=== PATIENT | female | born 1945 | race Caucasian/White ===

== ENCOUNTER 2016-07-21 19:21 | Inpatient (IN) | payer OTHER ==
[~2016-07-21] VITALS: Ht 142.2 cm; Wt 58.3 kg
[~2016-07-21 19:21] MED LIST: ASPI81TA21 PO; BUME1TAB PO; CRS10 PO; FOSI40TA2 PO; ISOS-11 PO; METO-596 PO; MIRT15TA3 PO; NRN/300 PO; POTA-331 PO; SODIUM CHLORIDE 0.9% 1000ML 1,000 ML IV STA
--- NOTE | 2016-07-21 19:38 | DIAGNOSTIC IMAGING REPORT ---
HEAD CT NONCONTRAST CT DOSE: 537.48 mGy.cm HISTORY: EVALUATE ALTERED MENTAL STATUS/WEAKNESS TECHNIQUE: Multiaxial CT images of the head were performed without the use of intravenous contrast. Automated exposure control was utilized for this study. Comparison: None. Findings: The paranasal sinuses and mastoid air cells are clear. The calvarium and skull base are intact. There is no mass, hematoma, midline shift, or acute infarct. White matter hypodensity is nonspecific but suggestive of microvascular ischemic change. The ventricles and sulci demonstrate mild age-related involutional changes. Questionable increased density within the proximal left MCA. Impression: No definite acute infarct identified at this time. Questionable increased density of the proximal left MCA. Please correlate clinically for a left MCA territory infarct. MRI may also help for further evaluation.. Atrophy and microvascular ischemic changes. Electronically signed by: Juan Castro M.D. 07/21/2016 7:36 PM Dictated Date/Time: 07/21/2016 7:29 PM
[2016-07-21] MEDS ORDERED: CLOP1TAB15 PO (19:48)
[2016-07-21] MEDS ORDERED: COEN100C15 PO (19:48)
[2016-07-21] MEDS ORDERED: SERT50TA PO (19:48)
[2016-07-21] MEDS ORDERED: B-COCAP28 PO (19:48)
[2016-07-21] MEDS ORDERED: CHOL1000 PO (19:48)
[2016-07-21] MEDS ORDERED: ATOR-24 PO (19:48)
[2016-07-21] MEDS ORDERED: CINA0.42 PO (19:48)
[2016-07-21] MEDS ORDERED: CYAN100020 PO (19:48)
[2016-07-21] MEDS ORDERED: VITA1TAB4 PO (19:48)
[2016-07-21] MEDS ORDERED: METO5TAB3 PO (19:48)
[2016-07-21] MEDS ORDERED: WARF2TAB8 PO (19:48)
[2016-07-21] MEDS ORDERED: POTTAB2 PO (19:48)
[2016-07-21] MEDS ORDERED: NRN100 PO (19:48)
[2016-07-21] MEDS ORDERED: PANT40TA PO (19:48)
[2016-07-21] MEDS ORDERED: ALL100 PO (19:48)
[2016-07-21] MEDS ORDERED: PRAM0.256 PO (19:48)
[2016-07-21] MEDS ORDERED: LNX125 PO ×2 (19:48→19:52)
[2016-07-21 19:51] LABS: BASO % 0.4 %; BASO ABS # 0.05 K/uL (0-0.2); COMPLETE YES; EOS % 1.9 %; HEMATOCRIT 39.6 % (37-47); IG% 0.3 %; LYMPH % 12.1 %; LYMPH ABS # 1.35 K/uL (1.2-3.4); MEAN CELL VOLUME 108.5 fL (80-100); MEAN CORPUSCULAR HEMOGLOBIN 35.3 pg (25-34); MEAN CORPUSCULAR HGB CONC 32.6 g/dl (32-36); MEAN PLATELET VOLUME 10.2 fL (7.4-10.4); MONO % 4.8 %; NEUT % 80.5 %; PLATELET COUNT 284 K/uL (130-400); RED BLOOD COUNT 3.65 M/uL (4.2-5.4); WHITE BLOOD COUNT 11.16 K/uL (4.8-10.8)
[2016-07-21] MEDS ORDERED: LOPE-5 PO (19:53)
[2016-07-21] MEDS ORDERED: ACET-1256 PO (19:54)
[2016-07-21 20:01] LABS: INR 1.4 (0.9-1.1); PARTIAL THROMBOPLASTIN RATIO 1.1; PROTHROMBIN TIME (PATIENT) 15.2 SECONDS (9.0-12.0)
--- NOTE | 2016-07-21 20:09 | DIAGNOSTIC IMAGING REPORT ---
CHEST ONE VIEW PORTABLE HISTORY: EVALUATE ALTERED MENTAL STATUS/WEAKNESS COMPARISON: None. FINDINGS: The patient is slightly rotated. The heart remains enlarged. No pneumothorax. Perihilar hazy opacities and interstitial thickening. This favors mild congestive change. There may be trace bilateral pleural effusions. There is an age-indeterminate displaced left humeral neck fracture. IMPRESSION: Cardiomegaly with mild congestive change and possibly trace bilateral pleural effusions. Age-indeterminate displaced left humeral neck fracture. Electronically signed by: Juan Castro M.D. 07/21/2016 8:07 PM Dictated Date/Time: 07/21/2016 8:05 PM
[2016-07-21 20:18] LABS: BUN/CREATININE RATIO 3.9 (10-20); CALCIUM 8.7 mg/dl (8.5-10.1); CKMB/CK RATIO 4.6 (0-3.0); CREATININE 2.3 mg/dl (0.60-1.20); MAGNESIUM 1.7 mg/dl (1.8-2.4); POTASSIUM 3.8 mmol/L (3.5-5.1); THYROID STIMULATING HORMONE 2.01 uIu/ml (0.300-4.500)
[2016-07-21] MEDS ORDERED: METOPROLOL TARTRATE 1 MG/ML VIAL IV STA (20:30)
[2016-07-21] MEDS ORDERED: HEPARIN 25000 UNIT/500 ML D5W ONE (20:42)
[2016-07-21] MEDS ORDERED: WARFARIN SOD 4 MG TAB PO ONE (21:35)
[2016-07-21] MEDS ORDERED: PHARMACIST DISCHARGE MED REC CONSULT PRN (21:45)
--- NOTE | 2016-07-21 21:56 | EMERGENCY ROOM VISIT NOTE ---
History Report prepared by Modesta: Brad Lawson Under the Supervision of: Dr. Medardo Jimenez D.O. First contact with patient: 18:53 Chief Complaint: STROKE SYMPTOMS Stated Complaint: STROKE ALERT History of Present Illness The patient is a 70 year old female with a history of atrial fibrillation who presents to the Emergency Room with complaints of persistent expressive aphasia beginning an hour and a half prior to arrival. As per daughter, the patient had finished eating and laid down around 1800, and then the patient began speaking but was not making sense. She notes her daughter tried squeezing her hands but she was limp. The daughter states the patient was able to smile and squeeze her hands following the episode, but the speech was not back to normal. She notes the patient is on Coumadin and has had atrial fibrillation for a couple of months. The daughter states the patient receives dialysis three times a week, and the patient had dialysis today. She notes the patient appeared more lethargic than usual following her dialysis today. The daughter states the patient has been tested for mini strokes in the past at [place], but they did not find anything. She notes the patient has a compression fracture in her back and had her port taken out 4-5 months ago. The daughter denies the patient having surgery in the past three months or recent GI bleeds. She denies the patient experiencing recent trauma except three months ago, the patient rolled out of bed and broke her left arm. The daughter denies the patient having liver problems. It is noted the patient's INR is 1.4. The patient's history is limited secondary to aphasia. 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 Review of Systems The HPI and ROS are limited secondary to expressive aphasia. Past Medical & Surgical Medical Problems: (1) Atrial fibrillation (2) Atrial fibrillation with RVR (3) CHF (congestive heart failure) (4) Depression Family History Patient reports no known family medical history. Social History Smoking Status: Never Smoker Marital Status: Housing Status: lives with family Current/Historical Medications Scheduled Acetaminophen (Tylenol), 1,000 MG PO DIRECTED Allopurinol (Allopurinol), 100 MG PO BID Atorvastatin (Lipitor), 40 MG PO QPM B-Complex W/ C & Folic Acid (Triphrocaps), 1 CAP PO Q2D Cholecalciferol (Vitamin D3), 1,000 MG PO DAILY Cinacalcet (Sensipar), 30 MG PO Q2D Clopidogrel (Plavix), 75 MG PO QAM Coenzyme Q10 (Ubidecarenone) (Co Q10), 100 MG PO BID Cyanocobalamin (Vitamin B12), 1,000 MCG PO DAILY Digoxin (Digoxin), 0.125 MG PO DIRECTED Digoxin (Digoxin), 0.125 MG PO WK Gabapentin (Gabapentin), 100 MG PO BID Loperamide Hcl (Imodium A-D), 2 TAB PO DIRECTED Metoclopramide HCl (Metoclopramide HCl), 5 MG PO QID Pantoprazole (Protonix), 40 MG PO QAM Pot Phosphate Monobasic W/ Sod (Phospha 250 Neutral), 1 TAB PO BID Pramipexole Dihydrochloride (Pramipexole Dihydrochlori), 0.25 MG PO QPM Sertraline (Zoloft), 50 MG PO QPM Vitamin E (Vitamin E), 400 MG PO DAILY Warfarin Sod (Jantoven), 2 MG PO QPM Allergies Coded Allergies: Erythromycin (Verified Adverse Reaction, Severe, VOMITING, 07/21/16) Acetaminophen (Verified Adverse Reaction, Unknown, VOMITING, 07/21/16) Propoxyphene (Verified Adverse Reaction, Unknown, VOMITING, 07/21/16) Physical Exam Vital Signs Date Time Temp Pulse Resp B/P Pulse Ox O2 Delivery O2 Flow Rate FiO2 07/21/16 21:11 99 100 07/21/16 20:58 133/69 07/21/16 20:51 116 22 99 07/21/16 20:50 132/88 07/21/16 20:49 116 126/76 07/21/16 20:30 126/76 07/21/16 20:21 125 21 100 07/21/16 19:51 124 22 100 07/21/16 19:42 Room Air 07/21/16 19:32 126 07/21/16 19:28 135/79 07/21/16 19:28 36.6 128 22 135/79 100 Room Air Physical Exam VITAL SIGNS: were reviewed as above. GENERAL:Non-toxic in appearance. SKIN: Warm dry and pink. HEAD: Normocephalic and atraumatic. OROPHARYNX: Is clear and moist NECK: Supple without lymphadenopathy or meningismus. LUNGS: clear. HEART: Regular rate and rhythm. ABDOMEN: Soft and nontender. EXTREMITIES: Mild left arm and left leg weakness compared to the right, although the assessment was somewhat challenged due to to previous left shoulder fracture. Warm and well perfused. NEUROLOGICALLY: Awake alert and oriented. Mild right sided facial droop. There is no pronator drift. Mild right sided facial droop. Expressive aphasia when attempting to speak but speech is garbled or with inappropriate words. Vision is grossly normal. MUSCULOSKELETAL: Good muscle tone. No evidence of trauma. Medical Decision & Procedures ER Provider Diagnostic Interpretation: X ray results and stated below per my interpretation and radiologist interpretation. Other radiology results and stated below per my review and radiologist interpretation: CHEST ONE VIEW PORTABLE HISTORY: EVALUATE ALTERED MENTAL STATUS/WEAKNESS COMPARISON: None. FINDINGS: The patient is slightly rotated. The heart remains enlarged. No pneumothorax. Perihilar hazy opacities and interstitial thickening. This favors mild congestive change. There may be trace bilateral pleural effusions. There is an age-indeterminate displaced left humeral neck fracture. IMPRESSION: Cardiomegaly with mild congestive change and possibly trace bilateral pleural effusions. Age-indeterminate displaced left humeral neck fracture. Electronically signed by: Juan Castro M.D. 07/21/2016 8:07 PM Dictated Date/Time: 07/21/2016 8:[address] CT DOSE: 537.48 mGy.cm HISTORY: EVALUATE ALTERED MENTAL STATUS/WEAKNESS TECHNIQUE: Multiaxial CT images of the head were performed without the use of intravenous contrast. Automated exposure control was utilized for this study. Comparison: None. Findings: The paranasal sinuses and mastoid air cells are clear. The calvarium and skull base are intact. There is no mass, hematoma, midline shift, or acute infarct. White matter hypodensity is nonspecific but suggestive of microvascular ischemic change. The ventricles and sulci demonstrate mild age-related involutional changes. Questionable increased density within the proximal left MCA. Impression: No definite acute infarct identified at this time. Questionable increased density of the proximal left MCA. Please correlate clinically for a left MCA territory infarct. MRI may also help for further evaluation.. Atrophy and microvascular ischemic changes. Electronically signed by: Juan Castro M.D. 07/21/2016 7:36 PM Dictated Date/Time: 07/21/2016 7:29 PM Laboratory Results 07/21/16 19:38 Red Blood Count 3.65, Mean Corpuscular Volume 108.5, Mean Corpuscular Hemoglobin 35.3, Mean Corpuscular Hemoglobin Concent 32.6, Mean Platelet Volume 10.2, Neutrophils (%) (Auto) 80.5, Lymphocytes (%) (Auto) 12.1, Monocytes (%) ( Auto) 4.8, Eosinophils (%) (Auto) 1.9, Basophils (%) (Auto) 0.4, Neutrophils # ( Auto) 8.98, Lymphocytes # (Auto) 1.35, Monocytes # (Auto) 0.54, Eosinophils # ( Auto) 0.21, Basophils # (Auto) 0.05 07/21/16 19:38 Test 07/21/16 19:30 07/21/16 19:36 07/21/16 19:38 07/21/16 20:38 Bedside Glucose 153 mg/dl (70-90) Bedside Prothrombin Time INR 1.4 (0.9-1.1) White Blood Count 11.16 K/uL (4.8-10.8) Red Blood Count 3.65 M/uL (4.2-5.4) Hemoglobin 12.9 g/dL (12.0-16.0) Hematocrit 39.6 % (37-47) Mean Corpuscular Volume 108.5 fL (80-100) Mean Corpuscular Hemoglobin 35.3 pg (25-34) Mean Corpuscular Hemoglobin Concent 32.6 g/dl (32-36) Platelet Count 284 K/uL (130-400) Mean Platelet Volume 10.2 fL (7.4-10.4) Neutrophils (%) (Auto) 80.5 % Lymphocytes (%) (Auto) 12.1 % Monocytes (%) (Auto) 4.8 % Eosinophils (%) (Auto) 1.9 % Basophils (%) (Auto) 0.4 % Neutrophils # (Auto) 8.98 K/uL (1.4-6.5) Lymphocytes # (Auto) 1.35 K/uL (1.2-3.4) Monocytes # (Auto) 0.54 K/uL (0.11-0.59) Eosinophils # (Auto) 0.21 K/uL (0-0.5) Basophils # (Auto) 0.05 K/uL (0-0.2) RDW Standard Deviation 66.8 fL (36.4-46.3) RDW Coefficient of Variation 16.7 % (11.5-14.5) Immature Granulocyte % (Auto) 0.3 % Immature Granulocyte # (Auto) 0.03 K/uL (0.00-0.02) Prothrombin Time 15.2 SECONDS (9.0-12.0) Prothromb Time International Ratio 1.4 (0.9-1.1) Activated Partial Thromboplast Time 28.8 SECONDS (21.0-31.0) Partial Thromboplastin Ratio 1.1 Anion Gap 12.0 mmol/L (3-11) Est Creatinine Clear Calc Drug Dose 18.0 ml/min Estimated GFR () 24.0 Estimated GFR (Non- 20.7 BUN/Creatinine Ratio 3.9 (10-20) Calcium Level 8.7 mg/dl (8.5-10.1) Magnesium Level 1.7 mg/dl (1.8-2.4) Total Bilirubin 0.7 mg/dl (0.2-1) Direct Bilirubin 0.2 mg/dl (0-0.2) Aspartate Amino Transf (AST/SGOT) 24 U/L (15-37) Alanine Aminotransferase (ALT/SGPT) 13 U/L (12-78) Alkaline Phosphatase 160 U/L (45-117) Total Creatine Kinase 35 U/L (26-192) Creatine Kinase MB 1.6 ng/ml (0.5-3.6) Creatine Kinase MB Ratio 4.6 (0-3.0) Troponin I 0.034 ng/ml (0-0.045) Total Protein 7.3 gm/dl (6.4-8.2) Albumin 2.8 gm/dl (3.4-5.0) Lipase 141 U/L (73-393) Thyroid Stimulating Hormone (TSH) 2.010 uIu/ml (0.300-4.500) Laboratory results as stated above per my review. Medications Administered Medications (Trade) Dose Ordered Sig/Liliane Route Start Time Stop Time Status Last Admin Dose Admin Sodium Chloride (Nss 1000ml) 1,000 ml @ 100 mls/hr Q10H STAT IV 07/21/16 19:01 07/22/16 05:00 07/21/16 19:01 100 MLS/HR Metoprolol Tartrate (Lopressor Iv) 5 mg NOW STAT IV 07/21/16 20:30 07/21/16 20:32 DC 07/21/16 20:49 5 MG Heparin Sodium/ Dextrose (Heparin 25,000 Unit/500ml D5W) 25,000 unit STK-MED ONCE .ROUTE 07/21/16 20:42 07/21/16 20:43 DC 07/21/16 21:02 25,000 UNIT ECG Indication: other (expressive aphasia) Rate (beats per minute): 129 Rhythm: atrial fibrillation Findings: no ectopy, other (no acute injury) ED Course 1900: Ordered Sodium Chloride 1,000 ml @ 100 mls/hr IV. 1931: Previous medical records were reviewed. The patient was evaluated in room B1. A complete history and physical examination was performed. 1951: I spoke to Dr. Chris, [facility] about the patient's case, and he will evaluate the patient via the TeleStroke. 2029: Ordered Heparin Sodium/Dextrose 1 ea N/A, Lopressor Iv 5 mg IV. 2034: Heparin Sodium/Dextrose 1 ea N/A. 2050: I spoke to Dr. Guardado [facility] (Hospitalist) about the patient's case, and he will follow the patient for further evaluation. Medical Decision Differential includes acute coronary syndrome, myocardial infarction, CVA, TIA, anemia, infection, pneumonia, UTI, pyelonephritis, poor nutrition, dehydration, electrolyte disturbance,hypoglycemia. This is a 70-year-old female who presents to the ED with a chief complaint of strokelike symptoms. The patient's main symptoms are expressive aphasia. Symptoms started around 6 PM tonight. The patient was brought in as a stroke alert. Her exam reveals some expressive aphasia. She is evaluated by [facility]. The patient and family wanted conservative measures. She did not have any clear focal deficits in her extremity exam. CBC was unremarkable. Creatinine is 2.3. Patient is dialysis dependent renal failure. She had dialysis earlier today. Glucose is 265. Magnesium was 1.7. CAT scan did not show any acute process. The patient is on Coumadin for A. fib diagnosed a few months ago. INR today is 1.4. The patient was given IV heparin. Her initial EKG showed A. fib at a rate of about 130. She was given IV Lopressor for this. She'll be seen by the hospitalist for further inpatient care. Consults Time Called: 1939 Consulting Physician: [facility] Returned Call: 1951 I spoke to [facility] about the patient's case, and he will evaluate the patient via the TeleStroke. Additional Consults: Time Called: 2038 Consulted Physician: LYUDMILA Peck (Hospitalist) Returned Call: 2050 Additional Comments: I spoke to LYUDMILA Peck (Hospitalist) about the patient's case, and he will follow the patient for further evaluation. Impression Primary Impression: CVA (cerebral vascular accident) Additional Impression: Expressive aphasia Critical Care I have personally spent 30 minutes of critical care time in the direct management of this patient. This includes bedside care, interpretation of diagnostic studies, and testing, discussion with consultants, patient, and family members, and other required patient management activities. This 30 minutes is in excess of all separately billable procedures. Scribe Attestation The scribe's documentation has been prepared under my direction and personally reviewed by me in its entirety. I confirm that the note above accurately reflects all work, treatment, procedures, and medical decision making performed by me. Departure Information Dispostion Being Evaluated By Hospitalist (LYUDMILA Peck (Hospitalist)) Referrals Medardo Trotter M.D. (PCP) Stroke History Time Last Known Well 1800 07/21/2016 Stroke t-PA Criteria Reviewed Reason t-PA Not Given Refusal of tx by patient (Family wanted conservative measures. Symptoms were stuttering.)
[2016-07-21 23:36] VITALS: BP 107/65; PULSE 91; TEMP 36.4; O2SAT 93; Ht 142.2 cm; Wt 58.3 kg
[2016-07-22] VITALS (7 sets, daily range): BP systolic 108–136; BP diastolic 65–81; PULSE 80–126; TEMP 36.7–36.9; O2SAT 94–97
[2016-07-22] MEDS ORDERED: ENOXAPARIN 1 MG/KG SQ SCH
[2016-07-22] MEDS ORDERED: ENOXAPARIN 60 MG/0.6 ML SYR SQ SCH
[2016-07-22] MEDS ORDERED: MAGNESIUM SULFATE 1GM / D5W 1 GM in PREMIXED IN D5W 100 ML IV STA (00:06)
[2016-07-22] MEDS ORDERED: METOPROLOL TARTRATE 1 MG/ML VIAL IV PRN ×2 (00:15→15:00)
[2016-07-22 03:32] LABS: BASO % 0.7 %; BASO ABS # 0.05 K/uL (0-0.2); COMPLETE YES; EOS % 3.4 %; HEMATOCRIT 34.4 % (37-47); IG% 0.4 %; LYMPH % 22.5 %; LYMPH ABS # 1.59 K/uL (1.2-3.4); MEAN CELL VOLUME 108.2 fL (80-100); MEAN CORPUSCULAR HEMOGLOBIN 34.6 pg (25-34); MEAN PLATELET VOLUME 10.4 fL (7.4-10.4); MONO % 6.8 %; NEUT % 66.2 %; PLATELET COUNT 248 K/uL (130-400); RED BLOOD COUNT 3.18 M/uL (4.2-5.4); WHITE BLOOD COUNT 7.06 K/uL (4.8-10.8)
[2016-07-22 03:43] LABS: PARTIAL THROMBOPLASTIN RATIO 1.4
[2016-07-22 03:52] LABS: BUN/CREATININE RATIO 5.1 (10-20); CALCIUM 7.9 mg/dl (8.5-10.1); CREATININE 2.5 mg/dl (0.60-1.20); POTASSIUM 3.9 mmol/L (3.5-5.1)
[2016-07-22 03:57] LABS: CHOLESTEROL/HDL RATIO 2.1; CKMB/CK RATIO 7.1 (0-3.0)
--- NOTE | 2016-07-22 04:09 | History and Physical ---
History & Physical Date & Time of Service: Jul 22, 2016 at 03:45 Chief Complaint: Atrial Fibrillation With Rvr, Expressive Aphasia Primary Care Physician: Medardo Trotter M.D. History of Present Illness Source: patient, family The patient is a 70-year-old female with end-stage renal disease, who undergoes dialysis on Thursday, Thursday and Thursday, who after dialysis today developed difficulty with talking with family, which is unusual for her. She is brought to the emergency department for assessment of stroke alert, and it was determined that she was not a TPA candidate per stroke neurology. She was then referred for evaluation for admission. She has chronic left arm weakness secondary to a left humerus fracture since April, and has a left arm fistula placed its been used for dialysis since April. She also has chronic left leg weakness which is thought due to lumbar degenerative disc disease. She was diagnosed with H a fibrillation in April of this year at [facility], and was started on Coumadin at that time. She did present in atrial fibrillation with RVR to the emergency department, with a rate of 130 bpm. In addition to warfarin, she takes digoxin on Thursday, Thursday and Thursday. Past Medical/Surgical History Medical Problems: (1) Atrial fibrillation Status: Chronic (2) CHF (congestive heart failure) Status: Chronic (3) Depression Status: Chronic Family History Patient reports no known family medical history. Social History Smoking Status: Never Smoker Smokeless Tobacco Use: No Alcohol Use: none Drug Use: none Marital Status: Housing status: lives with family Occupational Status: disabled Multi-Drug Resistant Organisms History of MDRO: No Allergies Coded Allergies: Erythromycin (Verified Adverse Reaction, Severe, VOMITING, 07/21/16) Acetaminophen (Verified Adverse Reaction, Unknown, VOMITING, 07/21/16) Propoxyphene (Verified Adverse Reaction, Unknown, VOMITING, 07/21/16) Home Medications Scheduled Acetaminophen (Tylenol), 1,000 MG PO DIRECTED Allopurinol (Allopurinol), 100 MG PO BID Atorvastatin (Lipitor), 40 MG PO QPM B-Complex W/ C & Folic Acid (Triphrocaps), 1 CAP PO Q2D Cholecalciferol (Vitamin D3), 1,000 MG PO DAILY Cinacalcet (Sensipar), 30 MG PO Q2D Clopidogrel (Plavix), 75 MG PO QAM Coenzyme Q10 (Ubidecarenone) (Co Q10), 100 MG PO BID Cyanocobalamin (Vitamin B12), 1,000 MCG PO DAILY Digoxin (Digoxin), 0.125 MG PO DIRECTED Digoxin (Digoxin), 0.125 MG PO WK Gabapentin (Gabapentin), 100 MG PO BID Loperamide Hcl (Imodium A-D), 2 TAB PO DIRECTED Metoclopramide HCl (Metoclopramide HCl), 5 MG PO QID Pantoprazole (Protonix), 40 MG PO QAM Pot Phosphate Monobasic W/ Sod (Phospha 250 Neutral), 1 TAB PO BID Pramipexole Dihydrochloride (Pramipexole Dihydrochlori), 0.25 MG PO QPM Sertraline (Zoloft), 50 MG PO QPM Vitamin E (Vitamin E), 400 MG PO DAILY Warfarin Sod (Jantoven), 2 MG PO QPM Review of Systems The patient denies chest pain, palpitations, shortness of breath, cough, vision change, hearing change, sore throat, fevers, chills, sweats, weight change, vomiting, abdominal pain, pelvic pain, blood in urine or stool, dysuria, urinary frequency or urgency, rash, abnormal bruising or bleeding, arthralgias or myalgias, back or neck pain, night sweats, or allergy symptoms. The review of systems is otherwise negative other than for that already noted above, and at least 10 systems have been reviewed. Physical Exam Vital Signs Date Time Temp Pulse Resp B/P Pulse Ox O2 Delivery O2 Flow Rate FiO2 07/21/16 23:36 36.4 91 16 107/65 93 Room Air 07/21/16 22:30 110 25 100 07/21/16 22:00 101 23 100 07/21/16 21:30 98 18 100 07/21/16 21:11 99 100 07/21/16 20:58 133/69 07/21/16 20:51 116 22 99 07/21/16 20:50 132/88 07/21/16 20:49 116 126/76 07/21/16 20:30 126/76 07/21/16 20:21 125 21 100 07/21/16 19:51 124 22 100 07/21/16 19:42 Room Air 07/21/16 19:32 126 07/21/16 19:28 135/79 1/9/17 19:28 36.6 128 22 135/79 100 Room Air The patient is awake, alert and oriented 3, normocephalic and atraumatic, is slow to respond to questions, lying in bed and in no acute distress. HEENT--PERRL, mucous membranes moist, and oropharynx normal. Neck--supple, no JVD or bruits, thyroid normal, trachea midline, no adenopathy. Heart--normal S1 and S2, no extra beats, no murmurs, rubs or gallops. Lungs--clear bilaterally, no respiratory distress, no accessory muscle use. Abdomen--normal bowel sounds and soft, nontender and nondistended, no hernias or masses, no organomegaly. Extremities--no cyanosis, clubbing or edema. There are good distal pulses b/l. Dermatologic--normal skin turgor, normal color, warm and dry, no abnormal lymph nodes, no rash. Neurologic--cranial nerves II through XII grossly intact. Psychiatric--normal affect. Diagnostics Laboratory Results Results Past 24 Hours Test 07/21/16 19:30 07/21/16 19:36 07/21/16 19:38 07/21/16 20:38 Range/Units Bedside Glucose 153 70-90 mg/dl Bedside Prothrombin Time INR 1.4 0.9-1.1 White Blood Count 11.16 4.8-10.8 K/uL Red Blood Count 3.65 4.2-5.4 M/uL Hemoglobin 12.9 12.0-16.0 g/dL Hematocrit 39.6 37-47 % Mean Corpuscular Volume 108.5 80-100 fL Mean Corpuscular Hemoglobin 35.3 25-34 pg Mean Corpuscular Hemoglobin Concent 32.6 32-36 g/dl Platelet Count 284 130-400 K/uL Mean Platelet Volume 10.2 7.4-10.4 fL Neutrophils (%) (Auto) 80.5 % Lymphocytes (%) (Auto) 12.1 % Monocytes (%) (Auto) 4.8 % Eosinophils (%) (Auto) 1.9 % Basophils (%) (Auto) 0.4 % Neutrophils # (Auto) 8.98 1.4-6.5 K/uL Lymphocytes # (Auto) 1.35 1.2-3.4 K/uL Monocytes # (Auto) 0.54 0.11-0.59 K/uL Eosinophils # (Auto) 0.21 0-0.5 K/uL Basophils # (Auto) 0.05 0-0.2 K/uL RDW Standard Deviation 66.8 36.4-46.3 fL RDW Coefficient of Variation 16.7 11.5-14.5 % Immature Granulocyte % (Auto) 0.3 % Immature Granulocyte # (Auto) 0.03 0.00-0.02 K/uL Prothrombin Time 15.2 9.0-12.0 SECONDS Prothromb Time International Ratio 1.4 0.9-1.1 Activated Partial Thromboplast Time 28.8 21.0-31.0 SECONDS Partial Thromboplastin Ratio 1.1 Sodium Level 138 136-145 mmol/L Potassium Level 3.8 3.5-5.1 mmol/L Chloride Level 98 98-107 mmol/L Carbon Dioxide Level 28 21-32 mmol/L Anion Gap 12.0 3-11 mmol/L Blood Urea Nitrogen 9 7-18 mg/dl Creatinine 2.30 0.60-1.20 mg/dl Est Creatinine Clear Calc Drug Dose 18.0 ml/min Estimated GFR () 24.0 Estimated GFR (Non- 20.7 BUN/Creatinine Ratio 3.9 10-20 Random Glucose 265 70-99 mg/dl Calcium Level 8.7 8.5-10.1 mg/dl Magnesium Level 1.7 1.8-2.4 mg/dl Total Bilirubin 0.7 0.2-1 mg/dl Direct Bilirubin 0.2 0-0.2 mg/dl Aspartate Amino Transf (AST/SGOT) 24 15-37 U/L Alanine Aminotransferase (ALT/SGPT) 13 12-78 U/L Alkaline Phosphatase 160 45-117 U/L Total Creatine Kinase 35 26-192 U/L Creatine Kinase MB 1.6 0.5-3.6 ng/ml Creatine Kinase MB Ratio 4.6 0-3.0 Troponin I 0.034 0-0.045 ng/ml Total Protein 7.3 6.4-8.2 gm/dl Albumin 2.8 3.4-5.0 gm/dl Lipase 141 73-393 U/L Thyroid Stimulating Hormone (TSH) 2.010 0.300-4.500 uIu/ml Test 07/22/16 02:51 Range/Units White Blood Count 7.06 4.8-10.8 K/uL Red Blood Count 3.18 4.2-5.4 M/uL Hemoglobin 11.0 12.0-16.0 g/dL Hematocrit 34.4 37-47 % Mean Corpuscular Volume 108.2 80-100 fL Mean Corpuscular Hemoglobin 34.6 25-34 pg Mean Corpuscular Hemoglobin Concent 32.0 32-36 g/dl Platelet Count 248 130-400 K/uL Mean Platelet Volume 10.4 7.4-10.4 fL Neutrophils (%) (Auto) 66.2 % Lymphocytes (%) (Auto) 22.5 % Monocytes (%) (Auto) 6.8 % Eosinophils (%) (Auto) 3.4 % Basophils (%) (Auto) 0.7 % Neutrophils # (Auto) 4.67 1.4-6.5 K/uL Lymphocytes # (Auto) 1.59 1.2-3.4 K/uL Monocytes # (Auto) 0.48 0.11-0.59 K/uL Eosinophils # (Auto) 0.24 0-0.5 K/uL Basophils # (Auto) 0.05 0-0.2 K/uL RDW Standard Deviation 67.2 36.4-46.3 fL RDW Coefficient of Variation 16.9 11.5-14.5 % Immature Granulocyte % (Auto) 0.4 % Immature Granulocyte # (Auto) 0.03 0.00-0.02 K/uL Activated Partial Thromboplast Time 37.2 21.0-31.0 SECONDS Partial Thromboplastin Ratio 1.4 Creatine Kinase MB Ratio 0-3.0 Diagnostic Radiology Patient Name: MELBA GARBER Unit Number: [id number] Dictated: 07/21/161928 Transcribed: 07/21/161928 [employer] Printed Date/Time: [~ rep prt dt]/[~ rep prt tm] [~ rep ct labl] - [~ rep ct ivnm] [facility] [place] [place] [address] Dictated: 07/21/161928 Transcribed: 07/21/161928 [employer] Printed Date/Time: [~ rep prt dt]/[~ rep prt tm] [~ rep ct labl] - [~ rep ct ivnm] HEAD CT NONCONTRAST CT DOSE: 537.48 mGy.cm HISTORY: EVALUATE ALTERED MENTAL STATUS/WEAKNESS TECHNIQUE: Multiaxial CT images of the head were performed without the use of intravenous contrast. Automated exposure control was utilized for this study. Comparison: None. Findings: The paranasal sinuses and mastoid air cells are clear. The calvarium and skull base are intact. There is no mass, hematoma, midline shift, or acute infarct. White matter hypodensity is nonspecific but suggestive of microvascular ischemic change. The ventricles and sulci demonstrate mild age-related involutional changes. Questionable increased density within the proximal left MCA. Impression: No definite acute infarct identified at this time. Questionable increased density of the proximal left MCA. Please correlate clinically for a left MCA territory infarct. MRI may also help for further evaluation.. Atrophy and microvascular ischemic changes. Electronically signed by: Juan Castro M.D. 07/21/2016 7:36 PM Dictated Date/Time: 07/21/2016 7:29 PM The status of this report is Signed. Draft = Not yet reviewed or approved by Radiologist. Signed = Reviewed and approved by Radiologist. <AttendingPhy></AttendingPhy> <FamilyPhy>Medardo Trotter M.D.</FamilyPhy> < PrimaryPhy>Medardo Trotter M.D.</PrimaryPhy> <UnitNumber>[id number]</UnitNumber > <VisitNumber>[id number]</VisitNumber> <PatientName>MELBA GARBER</ PatientName> <DateOfBirth>1945</DateOfBirth> <Location>[facility]</Location> < ServiceDate>07/21/16</ServiceDate> <MNE>ESINDI</MNE> <OrderingPhy>Medardo Jimenez D.O.</OrderingPhy> <OrderingPhyMNE>f rep ord dr bhagat</OrderingPhyMNE> < DictatingPhyMNE>f rep dict dr bhagat</DictatingPhyMNE> <CCListMNE>f rep ct mne</ CCListMNE> <AdmittingPhyMNE>f pt admit dr bhagat</AdmittingPhyMNE> <AttendingPhyMNE >f pt attend dr bhagat</AttendingPhyMNE> <ConsultingPhyMNE>f pt consult dr bhagat</ConsultingPhyMNE> <FamilyPhyMNE>f pt fam dr bhagat</FamilyPhyMNE> <OtherPhyMNE>f pt other dr bhagat</OtherPhyMNE> < PrimaryPhyMNE>f pt prim care dr bhagat</PrimaryPhyMNE> <ReferringPhyMNE>f pt referring dr bhagat</ReferringPhyMNE> Patient Name: MELBA GARBER Unit Number: [id number] Dictated: 07/21/162004 Transcribed: 07/21/162004 [employer] Printed Date/Time: [~ rep prt dt]/[~ rep prt tm] [~ rep ct labl] - [~ rep ct ivnm] [facility] [place] [place] [address] Dictated: 07/21/162004 Transcribed: 07/21/162004 [employer] Printed Date/Time: [~ rep prt dt]/[~ rep prt tm] [~ rep ct labl] - [~ rep ct ivnm] CHEST ONE VIEW PORTABLE HISTORY: EVALUATE ALTERED MENTAL STATUS/WEAKNESS COMPARISON: None. FINDINGS: The patient is slightly rotated. The heart remains enlarged. No pneumothorax. Perihilar hazy opacities and interstitial thickening. This favors mild congestive change. There may be trace bilateral pleural effusions. There is an age-indeterminate displaced left humeral neck fracture. IMPRESSION: Cardiomegaly with mild congestive change and possibly trace bilateral pleural effusions. Age-indeterminate displaced left humeral neck fracture. Electronically signed by: Juan Castro M.D. 07/21/2016 8:07 PM Dictated Date/Time: 07/21/2016 8:05 PM The status of this report is Signed. Draft = Not yet reviewed or approved by Radiologist. Signed = Reviewed and approved by Radiologist. <AttendingPhy></AttendingPhy> <FamilyPhy>Medardo Trotter M.D.</FamilyPhy> < PrimaryPhy>Medardo Trotter M.D.</PrimaryPhy> <UnitNumber>[id number]</UnitNumber > <VisitNumber>[id number]</VisitNumber> <PatientName>MELBA GARBER</ PatientName> <DateOfBirth>1945</DateOfBirth> <Location>[facility]</Location> < ServiceDate>07/21/16</ServiceDate> <MNE>ESINDI</MNE> <OrderingPhy>Medardo Jimenez D.O.</OrderingPhy> <OrderingPhyMNE>f rep ord dr bhagat</OrderingPhyMNE> < DictatingPhyMNE>f rep dict dr bhagat</DictatingPhyMNE> <CCListMNE>f rep ct mnkayla</ CCListMNE> <AdmittingPhyMNE>f pt admit dr bhagat</AdmittingPhyMNE> <AttendingPhyMNE >f pt attend dr bhagat</AttendingPhyMNE> <ConsultingPhyMNE>f pt consult dr bhagat</ConsultingPhyMNE> <FamilyPhyMNE>f pt fam dr bhagat</FamilyPhyMNE> <OtherPhyMNE>f pt other dr bhagat</OtherPhyMNE> < PrimaryPhyMNE>f pt prim care dr bhagat</PrimaryPhyMNE> <ReferringPhyMNE>f pt referring dr bhagat</ReferringPhyMNE> EKG EKG shows atrial fibrillation at a rate of 129 BPM, with baseline noise, and no acute ST-T changes. Impression Assessment and Plan Expressive aphasia with new left parietal lobe acute infarct seen on MRI. CT of the head initially was negative for CVA. MRA of the head and neck are still pending at this time. Atrial fibrillation with rapid ventricular response--the patient was given Lopressor 5 mg IV on emergency department. She'll be admitted to the telemetry unit, for serial cardiac enzymes, cardiac rhythm monitoring, and a 2-D echocardiogram with Dopplers. We'll continue digoxin 125 g by mouth on Thursday , Thursday and Thursday, but will check a digoxin level first. Her INR is subtherapeutic at 1.4 and she typically takes warfarin 2 mg daily. For now will increase warfarin to 4 mg by mouth daily, and place patient on Lovenox 1 mg /kg subcutaneous every 12 hours. 2-D echocardiogram will be performed to assess for possible embolic source of stroke. Magnesium level was mildly low at 1.7, and she'll be given magnesium 1 g IV With possible rate control. She' ll also be placed on Lopressor 2.5 mg IV every 4 hours when necessary heart rate greater than 110. Continue clopidogrel 75 mg by mouth every morning. End-stage renal disease on hemodialysis Thursday, Thursday and Thursday / creatinine upon entry labs was 2.30. She was placed on normal saline and given 1 L by the emergency department, and this will be changed to KVO at this time. We'll continue Sensipar 30 mg by mouth every 2 days, vitamin B complex one by mouth every 2 days, but and B12 1000 g by mouth daily, Phospha 250 neutral 1 tablet by mouth twice a day, vitamin D3 1000 mg by mouth daily. Hyperglycemia--entrance laboratories have a blood sugar 265. She is not presently on diabetic medications. We'll check hemoglobin A1c, and place on Accu-Cheks before meals and at bedtime with NovoLog coverage. Left humerus fracture that is nonhealing--continue to be taken when moving patient while in the hospital. Gout--continue allopurinol 100 mg by mouth twice a day. Hypercholesterolemia--continue atorvastatin 40 mg by mouth every afternoon. Restless leg syndrome--continue pramipexole 0.25 mg by mouth every afternoon. GERD--continue pantoprazole 40 mg by mouth every morning. Peripheral neuropathy--continue gabapentin 100 mg by mouth twice a day. GI dysmotility--continue metoclopramide 5 mg by mouth 4 times a day. Depression--continue sertraline 50 mg by mouth every afternoon. Level of Care Telemetry Advanced Directives Existing Advance Directive: No Existing Living Will: No Existing Power of Laboratory Phlebotomist: No Resuscitation Status FULL RESUSCITATION VTE Prophylaxis VTE Risk Assessment Done? Y/N: Yes Risk Level: High Given or contraindicated: Enoxaparin (Lovenox)SQ, Warfarin (Coumadin)
[2016-07-22 06:29] LABS: ESTIMATED AVERAGE GLUCOSE 114 mg/dl; HA1C FLAG Normal (Normal)
--- NOTE | 2016-07-22 07:10 | DIAGNOSTIC IMAGING REPORT ---
MRI OF THE BRAIN WITHOUT IV CONTRAST CLINICAL HISTORY: Expressive aphasia. Stroke like symptoms. COMPARISON STUDY: CT of the brain dated 07/21/2016. TECHNIQUE: MRI of the brain was performed utilizing various T1 and T2-weighted sequences in the axial, sagittal, and coronal planes. IV contrast was not administered for this examination. FINDINGS: Brain parenchyma: There is a small region of restricted diffusion identified in the left parietal lobe consistent with acute to subacute ischemia. No additional foci of restricted diffusion are identified. There is no hemorrhage or mass effect. There are age-related involutional changes noting mild to moderate patchy subcortical and periventricular microangiopathic disease. No extra-axial fluid collection is seen. The cerebellar tonsils are normal in configuration. Ventricles, sulci, and cisterns: Prominent secondary to involutional change. Pituitary and sella: Unremarkable. Intracranial vasculature: Normal flow voids are maintained at the skull base. Orbits: The bony orbits are grossly intact. Orbital contents are normal in appearance. Sinuses and mastoids: Clear. Calvarium: Unremarkable. Cervical cord: Partially visualized cervical spinal cord is normal in morphology and signal intensity. IMPRESSION: 1. There is a small region of acute to subacute ischemia identified in the left parietal lobe. 2. No additional foci of ischemia are identified. There is no hemorrhage or mass effect. Electronically signed by: Orlando Eason M.D. 07/22/2016 7:08 AM Dictated Date/Time: 07/22/2016 7:04 AM
--- NOTE | 2016-07-22 07:11 | DIAGNOSTIC IMAGING REPORT ---
MR ANGIOGRAPHY OF THE [place] NO CONTRAST CLINICAL HISTORY: Acute stroke. Expressive aphasia. Atrial fibrillation. COMPARISON STUDY: MRI the brain performed the same day, head CT dated 07/21/2016 A 3-D [id number] MR angiographic sequence of the [place] was performed. Both the source and projection images were reviewed. There is no evidence of major intracranial branch occlusion. There is no evidence of intracranial stenosis. There are no lesions suspicious for aneurysm. IMPRESSION: Unremarkable MR angiography of the [place]. Electronically signed by: Nick Hilton M.D. 07/22/2016 7:09 AM Dictated Date/Time: 07/22/2016 7:08 AM
--- NOTE | 2016-07-22 08:06 | Clinical Documentation Query ---
ESTUARDO Estrella : CLINICAL DOCUMENTATION QUERY Patient is a 70 year old female admitted for a left parietal lobe infarct in the setting of atrial fibrillation and subtherapeutic INR of 1.4. Patient was evaluated with CT and MRI and is being treated with Lovenox and Plavix, PT, OT, and speech evaluation. In your clinical opinion is this patient being managed for: ( x ) Cerebral infarction (likely/suspected to be) due to thromboembolism in the setting of atrial fibrillation and subtherapeutic INR ( ) Other explanation of clinical findings (Please Explain) ( ) Unable to determine (Please Define) ( ) Need to Discuss ( ) Not Agree The medical record reflects the following clinical findings, treatment, and risk factors. Clinical Indicators: As above Treatment:Patient was evaluated with CT and MRI and is being treated with Lovenox and Plavix, PT,OT, and speech evaluation Risk Factors: Atrial fibrillation, subtherapeutic INR Please clarify and document your clinical opinion in the progress notes and discharge summary. Terms such as "probable", "suspected", "likely", "questionable", "possible", or "still to be ruled out" are acceptable. IF IN AGREEMENT, YOU MUST DOCUMENT ABOVE DIAGNOSTIC STATEMENT IN DAILY PROGRESS NOTES AND DISCHARGE SUMMARY. This document is not part of the patient's record. Thank You, Quentin Quick, ADRIANE [phone]
[2016-07-22] MEDS: CYANOCOBALAMIN 500 MCG TAB (VIT B-12) PO SCH (08:33)
[2016-07-22] MEDS: ASPIRIN 81 MG ECTAB PO SCH (08:33)
[2016-07-22] MEDS: PANTOprazole SOD 40 MG TAB PO SCH (08:33)
[2016-07-22] MEDS: CLOPIDOGREL BISULFATE 75 MG TAB PO SCH (08:33)
[2016-07-22] MEDS: CHOLECALCIFEROL 1000 INTER.UNIT TAB PO SCH (08:33)
[2016-07-22] MEDS: POT PHOSPHATE MONOBASIC W/ SOD TAB PO SCH ×2 (08:33→20:32)
[2016-07-22] MEDS: CINACALCET 30 MG TAB PO SCH (08:33)
[2016-07-22] MEDS: NEPHROCAPS PO SCH (08:33)
[2016-07-22] MEDS: ALLOPURINOL 100 MG TAB PO SCH ×2 (08:33→20:33)
[2016-07-22] MEDS: METOCLOPRAMIDE HCL 5 MG TAB PO SCH ×4 (08:33→20:32)
[2016-07-22] MEDS: GABAPENTIN 100 MG CAP PO SCH ×2 (08:33→20:32)
[2016-07-22] MEDS ORDERED: ATORVASTATIN 20 MG TAB PO SCH (09:00)
--- NOTE | 2016-07-22 10:39 | Neurology Consultation ---
Neurology Consultation Date of Consultation: Jul 22, 2016. Attending Physician: Charly Hunt D.O. Primary Care Physician: Medardo Trotter M.D. Reason for Consultation: Neurology consultation for stroke History of Present Illness Source: patient, hospital records This is a 70-year-old female who presents with acute change in speech. Smile was occurring during dialysis about family reported that this has never happened before. On presentation to the hospital her INR was noted to be subtherapeutic at 1.4. She is on Coumadin for paroxysmal A. fib. History is somewhat limited secondary to patient's mental status and aphasia. Reportedly has chronic left upper extremity pain and weakness as well as some chronic left lower extremity pain believed to be secondary to back problems. History taking and review of systems is difficult and inconsistent due to patient's mental status and aphasia. Patient has difficult time telling me what was wrong. Past Medical/Surgical History Medical Problems: (1) CVA (cerebral vascular accident) Status: Acute A. fib on Coumadin and end-stage chronic renal failure. According to chart may also have congestive heart failure. Family History Not obtainable Social History Not obtainable. No reports of smoking or tobacco abuse. Smokeless Tobacco Use: No Alcohol Use: none Drug Use: none Marital Status: Housing Status: lives with family Occupation Status: disabled Allergies Coded Allergies: Erythromycin (Verified Adverse Reaction, Severe, VOMITING, 07/21/16) Acetaminophen (Verified Adverse Reaction, Unknown, VOMITING, 07/21/16) Propoxyphene (Verified Adverse Reaction, Unknown, VOMITING, 07/21/16) Current Inpatient Medications Current Inpatient Medications Medications (Trade) Dose Ordered Sig/Liliane Route Start Time Stop Time Status Last Admin Dose Admin Aspirin (Ecotrin Tab) 81 mg QAM PO 07/22/16 09:00 08/21/16 08:59 Miscellaneous Information (Pharmacist Discharge Med Rec Consult) 1 ea UD PRN N/A 07/21/16 21:45 08/20/16 21:44 Allopurinol (Zyloprim Tab) 100 mg BID PO 07/22/16 09:00 08/21/16 08:59 Atorvastatin Calcium (Lipitor Tab) 40 mg QPM PO 07/22/16 21:00 08/21/16 20:59 Vitamin B Complex/ Vit C/Folic Acid (Nephrocaps) 1 cap Q2D@0900 PO 07/22/16 09:00 08/21/16 08:59 Cholecalciferol (Vitamin D Tab) 1,000 inter.unit DAILY PO 07/22/16 09:00 08/21/16 08:59 Clopidogrel Bisulfate (plAVix TAB) 75 mg QAM PO 07/22/16 09:00 08/21/16 08:59 Digoxin (Lanoxin Tab) 0.125 mg MoWeFr@1600 PO 07/23/16 16:00 08/22/16 15:59 Gabapentin (Neurontin Cap) 100 mg BID PO 07/22/16 09:00 08/21/16 08:59 Metoclopramide HCl (Reglan Tab) 5 mg QID PO 07/22/16 09:00 08/21/16 08:59 Pantoprazole Sodium (Protonix Tab) 40 mg QAM PO 07/22/16 09:00 08/21/16 08:59 Potassium/ Phosphorus/Sodium (Phospha 250 Neutral 155-852-130 Mg) 1 tab BID PO 07/22/16 09:00 08/21/16 08:59 Pramipexole Dihydrochloride (miraPEX TAB) 0.25 mg QPM PO 07/22/16 21:00 08/21/16 20:59 Sertraline HCl (Zoloft Tab) 50 mg QPM PO 07/22/16 21:00 08/21/16 20:59 Warfarin Sodium (Coumadin Tab) 4 mg DAILY@1600 PO 07/22/16 16:00 08/21/16 15:59 Cyanocobalamin (Vitamin B-12 Tab) 1,000 mcg QAM PO 07/22/16 09:00 08/21/16 08:59 Cinacalcet (Sensipar) 30 mg Q2D@0900 PO 07/22/16 09:00 08/21/16 08:59 Metoprolol Tartrate (Lopressor Iv) 2.5 mg Q4 PRN IV 07/22/16 00:15 08/21/16 00:14 Enoxaparin Sodium (Lovenox Inj) 60 mg TODAY@0000 SQ 07/22/16 00:00 08/21/16 00:00 07/22/16 01:23 60 MG Enoxaparin Sodium (Consult) 1 ea UD PRN N/A 07/22/16 01:00 2/9/17 00:59 Review of Systems Not obtainable Physical Exam Vital Signs (Past 24 Hrs): Date Time Temp Pulse Resp B/P Pulse Ox O2 Delivery O2 Flow Rate FiO2 07/22/16 08:00 96 Room Air 07/22/16 07:44 36.9 101 20 119/73 96 Room Air 07/22/16 04:35 36.8 106 16 108/65 97 Room Air 07/21/16 23:36 36.4 91 16 107/65 93 Room Air 07/21/16 22:30 110 25 100 07/21/16 22:00 101 23 100 07/21/16 21:30 98 18 100 07/21/16 21:11 99 100 07/21/16 20:58 133/69 07/21/16 20:51 116 22 99 07/21/16 20:50 132/88 07/21/16 20:49 116 126/76 07/21/16 20:30 126/76 07/21/16 20:21 125 21 100 07/21/16 19:51 124 22 100 07/21/16 19:42 Room Air 07/21/16 19:32 126 07/21/16 19:28 135/79 07/21/16 19:28 36.6 128 22 135/79 100 Room Air Gen.: Patient is alert and oriented lying in bed in no acute distress Heart: Irregular rate and rhythm Extremities: No gross deformities or rashes noted Neurological examination: Mental status: Patient is alert and oriented to person and place only. Quickly falls asleep. Follows very few verbal commands correctly. Does not seem to answer questions appropriately or consistently. Speech demonstrates some mild dysarthria and mixed aphasia. Cranial nerves: Funduscopic examination difficult to view. Pupils equally round and react to light. Difficult to assess visual cooley due to mental status. Extraocular muscles intact with no nystagmus. No facial asymmetry noted. Difficult to tell whether facial sensation was intact bilaterally. Patient did not stick out her tongue for me. Hearing grossly intact to voice. Strength: Grossly intact and antigravity in all extremities. Patient had poor cooperation so it was difficult to get an exact strength examination. May have some trace weakness on the left compared to the right. Sensation: Difficult to assess secondary to mental status and aphasia but appears to be grossly intact to touch. Deep tendon reflexes: +1 in bilateral biceps brachioradialis and patellar. Toes were equivocal to plantar stimulation. Coordination: Difficult to assess with formal finger stenosis patient was unable to cooperate. Did not seem to have any ataxia or dysmetria with spontaneous movements. Station within the bed was normal. Laboratory Results Past 24 Hours: 07/22/16 02:51 Red Blood Count 3.18, Mean Corpuscular Volume 108.2, Mean Corpuscular Hemoglobin 34.6, Mean Corpuscular Hemoglobin Concent 32.0, Mean Platelet Volume 10.4, Neutrophils (%) (Auto) 66.2, Lymphocytes (%) (Auto) 22.5, Monocytes (%) ( Auto) 6.8, Eosinophils (%) (Auto) 3.4, Basophils (%) (Auto) 0.7, Neutrophils # ( Auto) 4.67, Lymphocytes # (Auto) 1.59, Monocytes # (Auto) 0.48, Eosinophils # ( Auto) 0.24, Basophils # (Auto) 0.05 07/22/16 02:51 Test 07/21/16 19:30 07/21/16 19:36 07/21/16 19:38 07/21/16 20:38 Bedside Glucose 153 mg/dl (70-90) Bedside Prothrombin Time INR 1.4 (0.9-1.1) Prothrombin Time 15.2 SECONDS (9.0-12.0) Prothromb Time International Ratio 1.4 (0.9-1.1) Estimated Average Glucose 114 mg/dl Hemoglobin A1c 5.6 % (4.5-5.6) Magnesium Level 1.7 mg/dl (1.8-2.4) Total Bilirubin 0.7 mg/dl (0.2-1) Direct Bilirubin 0.2 mg/dl (0-0.2) Aspartate Amino Transf (AST/SGOT) 24 U/L (15-37) Alanine Aminotransferase (ALT/SGPT) 13 U/L (12-78) Alkaline Phosphatase 160 U/L (45-117) Total Protein 7.3 gm/dl (6.4-8.2) Albumin 2.8 gm/dl (3.4-5.0) Lipase 141 U/L (73-393) Thyroid Stimulating Hormone (TSH) 2.010 uIu/ml (0.300-4.500) Test 07/22/16 02:51 White Blood Count 7.06 K/uL (4.8-10.8) Red Blood Count 3.18 M/uL (4.2-5.4) Hemoglobin 11.0 g/dL (12.0-16.0) Hematocrit 34.4 % (37-47) Mean Corpuscular Volume 108.2 fL (80-100) Mean Corpuscular Hemoglobin 34.6 pg (25-34) Mean Corpuscular Hemoglobin Concent 32.0 g/dl (32-36) Platelet Count 248 K/uL (130-400) Mean Platelet Volume 10.4 fL (7.4-10.4) Neutrophils (%) (Auto) 66.2 % Lymphocytes (%) (Auto) 22.5 % Monocytes (%) (Auto) 6.8 % Eosinophils (%) (Auto) 3.4 % Basophils (%) (Auto) 0.7 % Neutrophils # (Auto) 4.67 K/uL (1.4-6.5) Lymphocytes # (Auto) 1.59 K/uL (1.2-3.4) Monocytes # (Auto) 0.48 K/uL (0.11-0.59) Eosinophils # (Auto) 0.24 K/uL (0-0.5) Basophils # (Auto) 0.05 K/uL (0-0.2) RDW Standard Deviation 67.2 fL (36.4-46.3) RDW Coefficient of Variation 16.9 % (11.5-14.5) Immature Granulocyte % (Auto) 0.4 % Immature Granulocyte # (Auto) 0.03 K/uL (0.00-0.02) Activated Partial Thromboplast Time 37.2 SECONDS (21.0-31.0) Partial Thromboplastin Ratio 1.4 Anion Gap 11.0 mmol/L (3-11) Est Creatinine Clear Calc Drug Dose 14.8 ml/min Estimated GFR () 21.7 Estimated GFR (Non- 18.7 BUN/Creatinine Ratio 5.1 (10-20) Calcium Level 7.9 mg/dl (8.5-10.1) Total Creatine Kinase 17 U/L (26-192) Creatine Kinase MB 1.2 ng/ml (0.5-3.6) Creatine Kinase MB Ratio 7.1 (0-3.0) Troponin I 0.034 ng/ml (0-0.045) Triglycerides Level 175 mg/dl (0-150) Cholesterol Level 140 mg/dl (0-200) HDL Cholesterol 66 mg/dl LDL Cholesterol, Calculated 39 mg/dl VLDL Cholesterol, Calculated 35 mg/dl Cholesterol/HDL Ratio 2.1 Digoxin Level 0.4 ng/ml (0.8-2.0) Imaging MRI of the brain report and images were reviewed by myself. The patient does have an acute left parietal ischemic stroke. In addition she has evidence of old T2 hyperintensities in the subcortical white matter likely indicating small vessel ischemic disease versus old small cardioembolic events. There is also noted to be some mild diffuse atrophy as well. MRA of the brain report and images reviewed. Overall unremarkable although that may be less branching of MCA territories on the left compared to the right. Labs including lipid profile and hemoglobin A1C were reviewed and unremarkable ( within goal). Impression This is a 70-year-old female with an acute left parietal ischemic stroke likely cardioembolic from subtherapeutic INR in the setting of A. fib. Known stroke risk factors include A. fib. 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 Left upper extremity arm pain/weakness, and left lower extremity weakness or reportedly old. Plan Ultrasound of the carotids for further stroke workup (I have ordered these) Follow-up echocardiogram results to rule out cardiac thrombus or other causes for cardioembolic sources for stroke Continue anticoagulation for A. fib and stroke prevention with INR goal of 2-3. If patient is having difficult to control INR levels, could consider one of the newer agents such as Pradaxa or Xarelto. From the neurology stroke prevention standpoint, triple therapy with aspirin, Plavix, and anticoagulation is not necessary for stroke prevention. I would follow-up with cardiology as to whether antiplatelets are needed with anticoagulation. Avoid dehydration and hypotension as this could extend her stroke. Blood pressure recommendations while in hospital 175/95-150/80 For the first month after hospital discharge, blood pressure recommendations 150 /90-130/80. After the first month, blood pressure recommendations 130/80-110/70 Follow-up PT/OT and speech recommendations for discharge planning Neurological recommendations for stroke risk factor modifications: Total cholesterol goal 100-200, and LDL goal less than 100 (at goal) Hemoglobin A1c goal less than 7 (at goal) Encourage regular cardiovascular exercise at least 30 minutes 3 times per week Hospital Follow-up in neurology clinic in 1 month after discharge.
--- NOTE | 2016-07-22 11:06 | DIAGNOSTIC IMAGING REPORT ---
ULTRASOUND OF THE CAROTID ARTERIES CLINICAL HISTORY: Stroke. COMPARISON STUDY: No priors. TECHNIQUE: Real-time, grayscale, and color Doppler sonography of the carotid arteries is performed. Images are reviewed in the transverse and longitudinal planes. FINDINGS: Blood pressures were not performed due to limb restrictions. The carotid arteries are patent bilaterally and demonstrate antegrade flow. There is no significant atherosclerotic plaque identified. 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 There is arterialization of the jugular venous waveform. Normal doppler arterial waveforms are seen throughout. The cardiac pulsations appear irregular on several of the tracings. Velocity measurements are listed below. Common carotid peak systolic velocity (cm/sec): RIGHT: 110 LEFT: 98 ICA proximal peak systolic velocity (cm/sec): RIGHT: 54 LEFT: 76 ICA mid peak systolic velocity (cm/sec): RIGHT: 60 LEFT: 53 ICA distal peak systolic velocity (cm/sec): RIGHT: 47 LEFT: 37 ICA/CC peak systolic ratio: RIGHT: 0.5 LEFT: 0.8 Antegrade flow was shown in the vertebral arteries. The external carotid arteries are patent. IMPRESSION: 1. There is no sonographic evidence of hemodynamically significant stenosis in the right or left carotid arterial system. 2. Antegrade flow is shown in the vertebral arteries. 3. 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 Clinical correlation will be required. This could be further assessed with a CT angiogram of the neck. 4. The cardiac pulsations appear irregular on several of the tracings. Correlation clinically and with EKG findings for evidence of arrhythmia. Electronically signed by: Orlando Eason M.D. 07/22/2016 11:04 AM Dictated Date/Time: 07/22/2016 11:00 AM
[2016-07-22 12:35] LABS: CKMB/CK RATIO 5.6 (0-3.0)
[2016-07-22] MEDS ORDERED: DIGOXIN IV 250 MCG in SYRINGE 9 ML IV ONE (14:30)
--- NOTE | 2016-07-22 14:56 | ECHOCARDIOGRAM REPORT ---
*NOTICE TO RECEIVING CONSTITUTION PARTY AGENCY This information is strictly Confidential and protected under [place] law. [place] law prohibits you from making any further disclosure of this information unless further disclosure is expressly permitted by the written consent of the person to whom it pertains or is authorized by law. A general authorization for the release of medical or other information is not sufficient for this purpose. Hospital accepts no responsibility if the information is made available to any other person, INCLUDING THE PATIENT. Interpretation Summary * Name: MELBA GARBER Study Date: 07/22/2016 06:23 AM BP: 108/65 mmHg * Patient Location: [facility] HR: 110 * : 1945 (M/d/yyyy) Gender: Female Height: 59 in * Age: 70 yrs Ethnicity: [place] Weight: 136 lb * Ordering Physician: Roney Guardado * Referring Physician: Self, Referred * Performed By: Namrata White RCS * * Reason For Study: CEREBRAL ISCHEMIA / EMBOLUS * BSA: 1.6 m2 * -- Conclusions -- * 1. Small LV cavity size with mild concentric LVH. * 2. Normal LV function. LVEF 55-60%. No regional wall motion abnormalities. * 3. Diastolic dysfunction * 4. Moderate biatrial enlargement * 5. Dilated RV with mild RV dysfunction. * 6. No significant valvular pathology. * 7. Normal estimated RA and PA pressures * 8. Other than atrial fibrillation, no other cardioembolic sources for CVA identified. Negative saline contrast study for interatrial shunt. * 9. No prior studies for comparison. Procedure Details * A complete two-dimensional transthoracic echocardiogram was performed (2D, M-mode, Doppler and color flow Doppler). * A saline contrast injection was performed to assess for cardiac shunting. * The injection was performed through an intravenous line in the right arm. * The attending nurse who injected the saline contrast was HIEU GRAY, RN. * A total of 10 cc of agitated saline was given. Left Ventricle * The left ventricular cavity is small. * There is mild concentric left ventricular hypertrophy. * The basal septum is thickened and angulated consistent with sigmoid septum. * Ejection Fraction = 55-60%. * No regional wall motion abnormalities noted. Right Ventricle * The right ventricle is mild to moderately dilated. * The right ventricular systolic function is mildly reduced. Atria * The left atrium is moderately dilated. * The right atrium is moderately dilated. * Injection of contrast documented no interatrial shunt. Mitral Valve * The mitral valve is grossly normal. * There is no mitral valve stenosis. * There is trace mitral regurgitation. Tricuspid Valve * The tricuspid valve is not well visualized, but is grossly normal. * There is no tricuspid stenosis. * There is mild to moderate tricuspid regurgitation. * Right ventricular systolic pressure is elevated at 30-40mmHg. Aortic Valve * The aortic valve opens well. * The aortic valve is trileaflet. * No hemodynamically significant valvular aortic stenosis. * There is no significant aortic regurgitation. Pulmonic Valve * The pulmonic valve is not well visualized. * There is no pulmonic valvular stenosis. * There is no significant pulmonary regurgitation. Great Vessels * The aortic root and proximal ascending aorta are normal sized. Pericardium/Pleural * There is no pericardial effusion. Great Vessels * Normal inferior vena cava size and collapsability with sniff indicates a normal right atrial pressure of 3 mmHg MMode 2D Measurements and Calculations IVSd 1.4 cm IVSs 1.8 cm LVIDd 3.4 cm LVIDs 2.5 cm LVPWd 1.3 cm LVPWs 1.4 cm IVS/LVPW 1.0 FS 26.8 % EDV(Teich) 47.3 ml ESV(Teich) 22.0 ml EF(Teich) 53.5 % EDV(cubed) 39.2 ml ESV(cubed) 15.4 ml EF(cubed) 60.8 % % IVS thick 29.6 % % LVPW thick 7.6 % LV mass(C)d 158.1 grams LV mass(C)dI 101.0 grams/m\S\2 LV mass(C)s 142.9 grams LV mass(C)sI 91.3 grams/m\S\2 SV(Teich) 25.3 ml SI(Teich) 16.2 ml/m\S\2 SV(cubed) 23.8 ml SI(cubed) 15.2 ml/m\S\2 Ao root diam 3.1 cm Ao root area 7.3 cm\S\2 ACS 1.4 cm LA dimension 3.5 cm LA/Ao 1.2 LVOT diam 1.7 cm LVOT area 2.4 cm\S\2 LVAd ap4 16.9 cm\S\2 LVLd ap4 5.5 cm EDV(MOD-sp4) 43.7 ml EDV(sp4-el) 44.4 ml LVAs ap4 11.0 cm\S\2 LVLs ap4 4.5 cm ESV(MOD-sp4) 24.3 ml ESV(sp4-el) 22.9 ml EF(MOD-sp4) 44.2 % EF(sp4-el) 48.5 % LVAd ap2 18.6 cm\S\2 LVLd ap2 6.4 cm EDV(MOD-sp2) 43.0 ml EDV(sp2-el) 46.1 ml LVAs ap2 11.8 cm\S\2 LVLs ap2 5.4 cm ESV(MOD-sp2) 23.5 ml ESV(sp2-el) 21.7 ml EF(MOD-sp2) 45.4 % EF(sp2-el) 52.8 % LVLd %diff 14.2 % EDV(MOD-bp) 46.2 ml LVLs %diff 16.8 % ESV(MOD-bp) 26.5 ml EF(MOD-bp) 42.6 % SV(MOD-sp4) 19.3 ml SI(MOD-sp4) 12.3 ml/m\S\2 SV(MOD-sp2) 19.5 ml SI(MOD-sp2) 12.5 ml/m\S\2 SV(MOD-bp) 19.7 ml SI(MOD-bp) 12.6 ml/m\S\2 SV(sp4-el) 21.5 ml SI(sp4-el) 13.8 ml/m\S\2 SV(sp2-el) 24.3 ml SI(sp2-el) 15.5 ml/m\S\2 Doppler Measurements and Calculations MV E max delonte 102.3 cm/sec MV P1/2t max delonte 105.9 cm/sec MV P1/2t 55.0 msec MVA(P1/2t) 4.0 cm\S\2 MV dec slope 563.4 cm/sec\S\2 MV dec time 0.13 sec Ao V2 max 115.4 cm/sec Ao max PG 5.3 mmHg Ao max PG (full) 2.7 mmHg RAINA(V,A) 1.7 cm\S\2 RAINA(V,D) 1.7 cm\S\2 LV V1 max PG 2.7 mmHg LV V1 max 81.5 cm/sec PA V2 max 118.1 cm/sec PA max PG 5.6 mmHg TR max delonte 252.0 cm/sec
--- NOTE | 2016-07-22 15:25 | Progress Note ---
Subjective Date of Service: Jul 22, 2016. Subjective Pt evaluation today including: conversation w/ patient, conversation w/ family , physical exam, lab review, review of studies, conversation w/ optimization consultant, review of inpatient medication list Pain: mild low back pain PO Intake: adequate Voiding: no voiding problems patient sitting up in chair but requesting to get back in bed due to low back pain discussed language deficits with daughter, she says that there is some improvement today, more clear appreciate neurology recommendation, really may benefit from a newer agent for anticoagulation, trouble with therapeutic INR also, HR has been elevated today, will try to control daughter reports that patient has not seen a invoice checker for some time, does recall her having a normal heart catheterization in the past Problem List Medical Problems: (1) CVA (cerebral vascular accident) Status: Acute Review of Systems Constitutional: + fatigue, + weakness Neurologic: + problem reported (speech difficulties, improving slowly), + weakness (left sided, chronic) All Other Systems: Reviewed and Negative Medications Current Inpatient Medications Medications (Trade) Dose Ordered Sig/Liliane Route Start Time Stop Time Status Last Admin Dose Admin Aspirin (Ecotrin Tab) 81 mg QAM PO 07/22/16 09:00 08/21/16 08:59 Miscellaneous Information (Pharmacist Discharge Med Rec Consult) 1 ea UD PRN N/A 07/21/16 21:45 08/20/16 21:44 Allopurinol (Zyloprim Tab) 100 mg BID PO 07/22/16 09:00 08/21/16 08:59 Atorvastatin Calcium (Lipitor Tab) 40 mg QPM PO 07/22/16 21:00 08/21/16 20:59 Vitamin B Complex/ Vit C/Folic Acid (Nephrocaps) 1 cap Q2D@0900 PO 07/22/16 09:00 08/21/16 08:59 Cholecalciferol (Vitamin D Tab) 1,000 inter.unit DAILY PO 07/22/16 09:00 08/21/16 08:59 Clopidogrel Bisulfate (plAVix TAB) 75 mg QAM PO 07/22/16 09:00 08/21/16 08:59 Digoxin (Lanoxin Tab) 0.125 mg MoWeFr@1600 PO 07/23/16 16:00 08/22/16 15:59 Gabapentin (Neurontin Cap) 100 mg BID PO 07/22/16 09:00 08/21/16 08:59 Metoclopramide HCl (Reglan Tab) 5 mg QID PO 07/22/16 09:00 08/21/16 08:59 07/22/16 13:22 5 MG Pantoprazole Sodium (Protonix Tab) 40 mg QAM PO 07/22/16 09:00 08/21/16 08:59 Potassium/ Phosphorus/Sodium (Phospha 250 Neutral 155-852-130 Mg) 1 tab BID PO 07/22/16 09:00 08/21/16 08:59 Pramipexole Dihydrochloride (miraPEX TAB) 0.25 mg QPM PO 07/22/16 21:00 08/21/16 20:59 Sertraline HCl (Zoloft Tab) 50 mg QPM PO 07/22/16 21:00 08/21/16 20:59 Warfarin Sodium (Coumadin Tab) 4 mg DAILY@1600 PO 07/22/16 16:00 08/21/16 15:59 Cyanocobalamin (Vitamin B-12 Tab) 1,000 mcg QAM PO 07/22/16 09:00 08/21/16 08:59 Cinacalcet (Sensipar) 30 mg Q2D@0900 PO 07/22/16 09:00 08/21/16 08:59 Metoprolol Tartrate (Lopressor Iv) 2.5 mg Q4 PRN IV 07/22/16 00:15 07/22/16 16:00 Enoxaparin Sodium (Lovenox Inj) 60 mg TODAY@0000 SQ 07/22/16 00:00 08/21/16 00:00 07/22/16 01:23 60 MG Enoxaparin Sodium (Consult) 1 ea UD PRN N/A 07/22/16 01:00 08/21/16 00:59 Metoprolol Tartrate (Lopressor Tab) 25 mg BID PO 07/22/16 21:00 08/21/16 20:59 Metoprolol Tartrate (Lopressor Iv) 5 mg Q6H PRN IV 07/22/16 15:00 08/21/16 14:59 Objective Vital Signs Date Time Temp Pulse Resp B/P Pulse Ox O2 Delivery O2 Flow Rate FiO2 07/22/16 14:52 123 07/22/16 12:00 Room Air 07/22/16 11:40 36.8 115 20 115/74 97 Room Air 07/22/16 08:00 96 Room Air 07/22/16 07:44 36.9 101 20 119/73 96 Room Air 07/22/16 04:35 36.8 106 16 108/65 97 Room Air 07/21/16 23:36 36.4 91 16 107/65 93 Room Air 07/21/16 22:30 110 25 100 07/21/16 22:00 101 23 100 07/21/16 21:30 98 18 100 07/21/16 21:11 99 100 07/21/16 20:58 133/69 07/21/16 20:51 116 22 99 07/21/16 20:50 132/88 07/21/16 20:49 116 126/76 07/21/16 20:30 126/76 07/21/16 20:21 125 21 100 07/21/16 19:51 124 22 100 07/21/16 19:42 Room Air 07/21/16 19:32 126 07/21/16 19:28 135/79 07/21/16 19:28 36.6 128 22 135/79 100 Room Air Physical Exam General Appearance: no apparent distress, + thin Eyes: normal inspection, EOMI, sclerae normal ENT: normal ENT inspection, hearing grossly normal, pharynx normal Neck: supple, no adenopathy, no JVD, trachea midline Respiratory/Chest: chest non-tender, lungs clear, normal breath sounds, no respiratory distress, no accessory muscle use Cardiovascular: no edema, no gallop, no JVD, no murmur, + tachycardia, + irregularly irregular Abdomen: normal bowel sounds, non tender, soft, no organomegaly Extremities: non-tender, normal inspection, no pedal edema, no calf tenderness , pelvis stable Neurologic/Psychiatric: family literacy coordinator II-XII nml as tested, alert, normal mood/affect, oriented x 3, + motor weakness (left side more pronounced, cannot transer or ambulate independently) Skin: normal color, warm/dry, no rash Laboratory Results Last 24 Hours Test 07/21/16 19:30 07/21/16 19:36 07/21/16 19:38 07/21/16 20:38 Bedside Glucose 153 mg/dl Bedside Prothrombin Time INR 1.4 White Blood Count 11.16 K/uL Red Blood Count 3.65 M/uL Hemoglobin 12.9 g/dL Hematocrit 39.6 % Mean Corpuscular Volume 108.5 fL Mean Corpuscular Hemoglobin 35.3 pg Mean Corpuscular Hemoglobin Concent 32.6 g/dl Platelet Count 284 K/uL Mean Platelet Volume 10.2 fL Neutrophils (%) (Auto) 80.5 % Lymphocytes (%) (Auto) 12.1 % Monocytes (%) (Auto) 4.8 % Eosinophils (%) (Auto) 1.9 % Basophils (%) (Auto) 0.4 % Neutrophils # (Auto) 8.98 K/uL Lymphocytes # (Auto) 1.35 K/uL Monocytes # (Auto) 0.54 K/uL Eosinophils # (Auto) 0.21 K/uL Basophils # (Auto) 0.05 K/uL RDW Standard Deviation 66.8 fL RDW Coefficient of Variation 16.7 % Immature Granulocyte % (Auto) 0.3 % Immature Granulocyte # (Auto) 0.03 K/uL Prothrombin Time 15.2 SECONDS Prothromb Time International Ratio 1.4 Activated Partial Thromboplast Time 28.8 SECONDS Partial Thromboplastin Ratio 1.1 Sodium Level 138 mmol/L Potassium Level 3.8 mmol/L Chloride Level 98 mmol/L Carbon Dioxide Level 28 mmol/L Anion Gap 12.0 mmol/L Blood Urea Nitrogen 9 mg/dl Creatinine 2.30 mg/dl Est Creatinine Clear Calc Drug Dose 18.0 ml/min Estimated GFR () 24.0 Estimated GFR (Non- 20.7 BUN/Creatinine Ratio 3.9 Random Glucose 265 mg/dl Estimated Average Glucose 114 mg/dl Hemoglobin A1c 5.6 % Calcium Level 8.7 mg/dl Magnesium Level 1.7 mg/dl Total Bilirubin 0.7 mg/dl Direct Bilirubin 0.2 mg/dl Aspartate Amino Transf (AST/SGOT) 24 U/L Alanine Aminotransferase (ALT/SGPT) 13 U/L Alkaline Phosphatase 160 U/L Total Creatine Kinase 35 U/L Creatine Kinase MB 1.6 ng/ml Creatine Kinase MB Ratio 4.6 Troponin I 0.034 ng/ml Total Protein 7.3 gm/dl Albumin 2.8 gm/dl Lipase 141 U/L Thyroid Stimulating Hormone (TSH) 2.010 uIu/ml Test 07/22/16 02:51 07/22/16 11:33 White Blood Count 7.06 K/uL Red Blood Count 3.18 M/uL Hemoglobin 11.0 g/dL Hematocrit 34.4 % Mean Corpuscular Volume 108.2 fL Mean Corpuscular Hemoglobin 34.6 pg Mean Corpuscular Hemoglobin Concent 32.0 g/dl Platelet Count 248 K/uL Mean Platelet Volume 10.4 fL Neutrophils (%) (Auto) 66.2 % Lymphocytes (%) (Auto) 22.5 % Monocytes (%) (Auto) 6.8 % Eosinophils (%) (Auto) 3.4 % Basophils (%) (Auto) 0.7 % Neutrophils # (Auto) 4.67 K/uL Lymphocytes # (Auto) 1.59 K/uL Monocytes # (Auto) 0.48 K/uL Eosinophils # (Auto) 0.24 K/uL Basophils # (Auto) 0.05 K/uL RDW Standard Deviation 67.2 fL RDW Coefficient of Variation 16.9 % Immature Granulocyte % (Auto) 0.4 % Immature Granulocyte # (Auto) 0.03 K/uL Activated Partial Thromboplast Time 37.2 SECONDS Partial Thromboplastin Ratio 1.4 Sodium Level 140 mmol/L Potassium Level 3.9 mmol/L Chloride Level 101 mmol/L Carbon Dioxide Level 28 mmol/L Anion Gap 11.0 mmol/L Blood Urea Nitrogen 13 mg/dl Creatinine 2.50 mg/dl Est Creatinine Clear Calc Drug Dose 14.8 ml/min Estimated GFR () 21.7 Estimated GFR (Non- 18.7 BUN/Creatinine Ratio 5.1 Random Glucose 159 mg/dl Calcium Level 7.9 mg/dl Total Creatine Kinase 17 U/L 18 U/L Creatine Kinase MB 1.2 ng/ml 1.0 ng/ml Creatine Kinase MB Ratio 7.1 5.6 Troponin I 0.034 ng/ml 0.030 ng/ml Triglycerides Level 175 mg/dl Cholesterol Level 140 mg/dl HDL Cholesterol 66 mg/dl LDL Cholesterol, Calculated 39 mg/dl VLDL Cholesterol, Calculated 35 mg/dl Cholesterol/HDL Ratio 2.1 Digoxin Level 0.4 ng/ml Assessment and Plan 70 yo female with h/o ESRD on HD MWF, atrial fibrillation on Coumadin, presented with acute expressive aphasia. MRI showed an acute left parietal stroke, suspect due to cardioembolic source - Acute left parietal stroke: likely cardioembolic from atrial fibrillation with subtherapeutic INR lipids (LDL 39) and A1c (5.6) at goal, permissive hypertension normal MRA head, carotid US shows no stenosis, echo shows normal function, no intracardiac thrombus, no PFO will start Eliquis to replace Coumadin to provide more consistent anticoagulation recommendations for dosing are typically 5mg BID if on HD, however, if < 60kg or 80yo then recommend 2.5mg BID patient's weight is 60.2kg, will start 5mg BID but weight will need followed , may need to adjust dose in near future - Atrial fibrillation with RVR: patient only takes Digoxin 3 days per week, Digoxin level was low with testing currently HR in the 110-120's, even 130's with activity will treat with Digoxin 250mcg IV x 1 now, Lopressor 5mg IV q6 PRN for HR > 110, start Lopressor 25mg PO BID tonight will consider cardiology consult tomorrow if HR still difficult to control - ESRD on HD on MWF: consult nephrology for HD orders, continue Sensipar, vitamins B and D, neutraphos Left humerus fracture that is nonhealing--continue to be taken when moving patient while in the hospital. Gout--continue allopurinol 100 mg by mouth twice a day. Hypercholesterolemia--continue atorvastatin 40 mg by mouth every afternoon. LDL at goal Restless leg syndrome--continue pramipexole 0.25 mg by mouth every afternoon. GERD--continue pantoprazole 40 mg by mouth every morning. Peripheral neuropathy--continue gabapentin 100 mg by mouth twice a day. GI dysmotility--continue metoclopramide 5 mg by mouth 4 times a day. Depression--continue sertraline 50 mg by mouth every afternoon.
[2016-07-22] MEDS ORDERED: WARFARIN SOD 4 MG TAB PO SCH (16:00)
[2016-07-22] MEDS: METOPROLOL TARTRATE 25 MG TAB PO SCH (20:32)
[2016-07-22] MEDS: SERTRALINE HCL 50 MG TAB PO SCH (20:33)
[2016-07-22] MEDS: APIXABAN 2.5 MG TAB PO SCH (20:33)
[2016-07-22] MEDS: ATORVASTATIN 40 MG TAB PO SCH (20:33)
[2016-07-22] MEDS: PRAMIPEXOLE DIHYDROCHLORIDE 0.25MG TAB PO SCH (20:34)
[2016-07-23] VITALS (21 sets, daily range): BP systolic 81–135; BP diastolic 30–76; PULSE 56–99; TEMP 36.4–36.7; O2SAT 96–98
[2016-07-23 07:20] LABS: BASO % 0.8 %; BASO ABS # 0.06 K/uL (0-0.2); COMPLETE YES; EOS % 6.5 %; HEMATOCRIT 36.1 % (37-47); IG% 0.3 %; LYMPH ABS # 1.98 K/uL (1.2-3.4); MEAN CELL VOLUME 107.1 fL (80-100); MEAN CORPUSCULAR HEMOGLOBIN 34.4 pg (25-34); MEAN CORPUSCULAR HGB CONC 32.1 g/dl (32-36); MEAN PLATELET VOLUME 10.2 fL (7.4-10.4); MONO % 7.5 %; NEUT % 56.9 %; PLATELET COUNT 248 K/uL (130-400); RED BLOOD COUNT 3.37 M/uL (4.2-5.4); WHITE BLOOD COUNT 7.07 K/uL (4.8-10.8)
[2016-07-23] MEDS: METOPROLOL TARTRATE 25 MG TAB PO SCH ×2 (07:25→20:21)
[2016-07-23] MEDS: POT PHOSPHATE MONOBASIC W/ SOD TAB PO SCH ×2 (07:25→20:21)
[2016-07-23] MEDS: APIXABAN 2.5 MG TAB PO SCH ×2 (07:25→20:18)
[2016-07-23] MEDS: PANTOprazole SOD 40 MG TAB PO SCH (07:25)
[2016-07-23] MEDS: GABAPENTIN 100 MG CAP PO SCH ×2 (07:25→20:19)
[2016-07-23] MEDS: ASPIRIN 81 MG ECTAB PO SCH (07:25)
[2016-07-23] MEDS: CLOPIDOGREL BISULFATE 75 MG TAB PO SCH (07:25)
[2016-07-23] MEDS: METOCLOPRAMIDE HCL 5 MG TAB PO SCH ×4 (07:25→20:22)
[2016-07-23] MEDS: CYANOCOBALAMIN 500 MCG TAB (VIT B-12) PO SCH (07:25)
[2016-07-23] MEDS: ALLOPURINOL 100 MG TAB PO SCH ×2 (07:26→20:23)
[2016-07-23] MEDS: CHOLECALCIFEROL 1000 INTER.UNIT TAB PO SCH (07:26)
[2016-07-23 07:27] LABS: PARTIAL THROMBOPLASTIN RATIO 1.2
[2016-07-23 07:55] LABS: BUN/CREATININE RATIO 6.7 (10-20); CALCIUM 8.3 mg/dl (8.5-10.1); POTASSIUM 4.5 mmol/L (3.5-5.1)
--- NOTE | 2016-07-23 10:45 | Neurology Progress Notes ---
Neurology Progress Note Date of Service Jul 23, 2016. Subjective Patient was much the same this morning, though was being fed a pureed diet and seemed to tolerate it well. On further r/v with Dr Streeter, pt's daughter and pt's cousin were both there. Agreed that her speech and understanding are somewhat limited. Denied any other concerns. Objective Date Time Temp Pulse Resp B/P Pulse Ox O2 Delivery O2 Flow Rate FiO2 07/23/16 10:20 98 Room Air 07/23/16 07:52 36.4 84 20 123/73 98 Room Air 07/23/16 03:34 36.5 82 18 135/76 98 Room Air 07/22/16 23:40 36.8 80 18 136/77 94 Room Air 07/22/16 20:08 36.7 94 18 126/75 94 Room Air 07/22/16 16:45 126 120/81 07/22/16 16:00 Room Air 07/22/16 15:37 36.8 126 16 120/81 94 Room Air 07/22/16 14:52 123 07/22/16 12:00 Room Air 07/22/16 11:40 36.8 115 20 115/74 97 Room Air Last 24 Hours Test 07/22/16 11:33 07/23/16 07:03 07/23/16 09:16 Total Creatine Kinase 18 U/L Creatine Kinase MB 1.0 ng/ml Creatine Kinase MB Ratio 5.6 Troponin I 0.030 ng/ml White Blood Count 7.07 K/uL Red Blood Count 3.37 M/uL Hemoglobin 11.6 g/dL Hematocrit 36.1 % Mean Corpuscular Volume 107.1 fL Mean Corpuscular Hemoglobin 34.4 pg Mean Corpuscular Hemoglobin Concent 32.1 g/dl Platelet Count 248 K/uL Mean Platelet Volume 10.2 fL Neutrophils (%) (Auto) 56.9 % Lymphocytes (%) (Auto) 28.0 % Monocytes (%) (Auto) 7.5 % Eosinophils (%) (Auto) 6.5 % Basophils (%) (Auto) 0.8 % Neutrophils # (Auto) 4.02 K/uL Lymphocytes # (Auto) 1.98 K/uL Monocytes # (Auto) 0.53 K/uL Eosinophils # (Auto) 0.46 K/uL Basophils # (Auto) 0.06 K/uL RDW Standard Deviation 65.7 fL RDW Coefficient of Variation 16.7 % Immature Granulocyte % (Auto) 0.3 % Immature Granulocyte # (Auto) 0.02 K/uL Activated Partial Thromboplast Time 31.8 SECONDS Partial Thromboplastin Ratio 1.2 Sodium Level 138 mmol/L Potassium Level 4.5 mmol/L Chloride Level 99 mmol/L Carbon Dioxide Level 29 mmol/L Anion Gap 10.0 mmol/L Blood Urea Nitrogen 27 mg/dl Creatinine 4.00 mg/dl Est Creatinine Clear Calc Drug Dose 9.4 ml/min Estimated GFR () 12.3 Estimated GFR (Non- 10.6 BUN/Creatinine Ratio 6.7 Random Glucose 127 mg/dl Calcium Level 8.3 mg/dl Imaging: ULTRASOUND OF THE CAROTID ARTERIES CLINICAL HISTORY: Stroke. COMPARISON STUDY: No priors. TECHNIQUE: Real-time, grayscale, and color Doppler sonography of the carotid arteries is performed. Images are reviewed in the transverse and longitudinal planes. FINDINGS: Blood pressures were not performed due to limb restrictions. The carotid arteries are patent bilaterally and demonstrate antegrade flow. There is no significant atherosclerotic plaque identified. 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 There is arterialization of the jugular venous waveform. Normal doppler arterial waveforms are seen throughout. The cardiac pulsations appear irregular on several of the tracings. Velocity measurements are listed below. Common carotid peak systolic velocity (cm/sec): RIGHT: 110 LEFT: 98 ICA proximal peak systolic velocity (cm/sec): RIGHT: 54 LEFT: 76 ICA mid peak systolic velocity (cm/sec): RIGHT: 60 LEFT: 53 ICA distal peak systolic velocity (cm/sec): RIGHT: 47 LEFT: 37 ICA/CC peak systolic ratio: RIGHT: 0.5 LEFT: 0.8 Antegrade flow was shown in the vertebral arteries. The external carotid arteries are patent. IMPRESSION: 1. There is no sonographic evidence of hemodynamically significant stenosis in the right or left carotid arterial system. 2. Antegrade flow is shown in the vertebral arteries. 3. 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 Clinical correlation will be required. This could be further assessed with a CT angiogram of the neck. 4. The cardiac pulsations appear irregular on several of the tracings. Correlation clinically and with EKG findings for evidence of arrhythmia. ECHO 07/22/16 * -- Conclusions -- * 1. Small LV cavity size with mild concentric LVH. * 2. Normal LV function. LVEF 55-60%. No regional wall motion abnormalities. * 3. Diastolic dysfunction * 4. Moderate biatrial enlargement * 5. Dilated RV with mild RV dysfunction. * 6. No significant valvular pathology. * 7. Normal estimated RA and PA pressures * 8. Other than atrial fibrillation, no other cardioembolic sources for CVA identified. Negative saline contrast study for interatrial shunt. * 9. No prior studies for comparison. Exam: General: Awake, alert, but nonverbal HEENT: Pupils equal, reactive to light CVS: Irregularly irregular, HS normal with no murmurs, rubs, gallops Chest: Clear to auscultation Abd: Soft, nontender Neuro: Awake, disoriented to time, place, person. Would not comply with cranial nerve, motor, sensory, or coordination exam. Instead says "yes" or "mmhmm" Ext: No peripheral edema, nontender. Current Inpatient Medications Medications (Trade) Dose Ordered Sig/Liliane Route Start Time Stop Time Status Last Admin Dose Admin Aspirin (Ecotrin Tab) 81 mg QAM PO 07/22/16 09:00 08/21/16 08:59 07/23/16 07:25 81 MG Miscellaneous Information (Pharmacist Discharge Med Rec Consult) 1 ea UD PRN N/A 07/21/16 21:45 08/20/16 21:44 Allopurinol (Zyloprim Tab) 100 mg BID PO 07/22/16 09:00 08/21/16 08:59 07/23/16 07:26 100 MG Atorvastatin Calcium (Lipitor Tab) 40 mg QPM PO 07/22/16 21:00 08/21/16 20:59 07/22/16 20:33 40 MG Vitamin B Complex/ Vit C/Folic Acid (Nephrocaps) 1 cap Q2D@0900 PO 07/22/16 09:00 08/21/16 08:59 Cholecalciferol (Vitamin D Tab) 1,000 inter.unit DAILY PO 07/22/16 09:00 08/21/16 08:59 07/23/16 07:26 1,000 INTER.UNIT Clopidogrel Bisulfate (plAVix TAB) 75 mg QAM PO 07/22/16 09:00 08/21/16 08:59 07/23/16 07:25 75 MG Digoxin (Lanoxin Tab) 0.125 mg MoWeFr@1600 PO 07/23/16 16:00 08/22/16 15:59 Gabapentin (Neurontin Cap) 100 mg BID PO 07/22/16 09:00 08/21/16 08:59 07/23/16 07:25 100 MG Metoclopramide HCl (Reglan Tab) 5 mg QID PO 07/22/16 09:00 08/21/16 08:59 07/23/16 07:25 5 MG Pantoprazole Sodium (Protonix Tab) 40 mg QAM PO 07/22/16 09:00 08/21/16 08:59 07/23/16 07:25 40 MG Potassium/ Phosphorus/Sodium (Phospha 250 Neutral 155-852-130 Mg) 1 tab BID PO 07/22/16 09:00 08/21/16 08:59 07/23/16 07:25 1 TAB Pramipexole Dihydrochloride (miraPEX TAB) 0.25 mg QPM PO 07/22/16 21:00 08/21/16 20:59 07/22/16 20:34 0.25 MG Sertraline HCl (Zoloft Tab) 50 mg QPM PO 07/22/16 21:00 08/21/16 20:59 07/22/16 20:33 50 MG Cyanocobalamin (Vitamin B-12 Tab) 1,000 mcg QAM PO 07/22/16 09:00 08/21/16 08:59 07/23/16 07:25 1,000 MCG Cinacalcet (Sensipar) 30 mg Q2D@0900 PO 07/22/16 09:00 08/21/16 08:59 Metoprolol Tartrate (Lopressor Tab) 25 mg BID PO 07/22/16 21:00 08/21/16 20:59 07/23/16 07:25 25 MG Metoprolol Tartrate (Lopressor Iv) 5 mg Q6H PRN IV 07/22/16 15:00 08/21/16 14:59 07/22/16 16:45 5 MG Apixaban (Eliquis Tab) 5 mg BID PO 07/22/16 21:00 08/21/16 20:59 07/23/16 07:25 5 MG Impression 70 year old female with acute left parietal ischemic stroke, likely due to subtherapeutic INR on coumadin for atrial fibrillation, now switched to Eliquis. Deficits include encephalopathy and mixed aphasia. Plan 1. Ultrasound of carotids completed, as above. Would defer ordering CT angiogram of neck to primary service / will discuss with Dr Streeter 2. Echocardiogram completed, as above 3. Cointinue anticoagulation with Eliquis 4. BP seems well controlled during admission. Continue aiming for goals of 150/ 80-175/85 while in hospital, for first month after discharge 130/80-150/90, and then afterwards 110/70-130/80 5. Avoid dehydration and hypotension 6. Aggressive PT/OT/Speech 7. Continue statin therapy, is at goal of total cholesterol 100-200 and LDL < 100 8. Continue diabetic management, at goal already 9. Follow up in Neurology clinic 1 month after discharge Neurology attending addendum: Patient seen and evaluated with resident. History/physical, assessment and plan review and agree. This is a 70-year-old female with an acute left parietal ischemic stroke likely cardioembolic from subtherapeutic INR in the setting of A. fib. Known stroke risk factors include A. fib. 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 Left upper extremity arm pain/weakness, and left lower extremity weakness are reportedly old. Reviewed ultrasound findings. Questionable AV fistula on the right but is on the wrong side for her stroke. Likely asymptomatic. CTA for further evaluation was recommended by radiology, but unlikely to be able to do this with her end- stage renal failure. Could consider follow-up ultrasound of the carotids as an outpatient versus vascular surgery consult evaluation. Agree with initiation of Eliquis. From a neurology stroke prevention standpoint , addition of antiplatelets to anticoagulation is not necessary (and carries a higher bleeding risk), but she should follow-up with cardiology to see if antiplatelets are recommended from a cardiac standpoint. No additional neurological recommendations at this time. Thank you for allowing me to participate in this patient's care. If there is any questions or concerns , feel free to call/page me. -Amparo Streeter, DO Resident Tracking Resident Involvement: Resident Care Provided Care Provided: Adult Hospital Medicine (Neurology)
--- NOTE | 2016-07-23 11:30 | Progress Note ---
Subjective Date of Service: Jul 23, 2016. Subjective Pt evaluation today including: conversation w/ patient, physical exam, lab review, review of inpatient medication list Pain: chronic low back pain PO Intake: adequate Voiding: no voiding problems patient sleeping but wakes easily, still with expressive aphasia, difficulty speaking more than one word at a time HR much better controlled, will continue metoprolol plan for dialysis and therapy today, updated patient she offers no complaints other than difficulty speaking Problem List Medical Problems: (1) CVA (cerebral vascular accident) Status: Acute Review of Systems Constitutional: + fatigue, + weakness Neurologic: + problem reported (expressive aphasia), + weakness All Other Systems: Reviewed and Negative Medications Current Inpatient Medications Medications (Trade) Dose Ordered Sig/Liliane Route Start Time Stop Time Status Last Admin Dose Admin Aspirin (Ecotrin Tab) 81 mg QAM PO 07/22/16 09:00 08/21/16 08:59 07/23/16 07:25 81 MG Miscellaneous Information (Pharmacist Discharge Med Rec Consult) 1 ea UD PRN N/A 07/21/16 21:45 08/20/16 21:44 Allopurinol (Zyloprim Tab) 100 mg BID PO 07/22/16 09:00 08/21/16 08:59 07/23/16 07:26 100 MG Atorvastatin Calcium (Lipitor Tab) 40 mg QPM PO 07/22/16 21:00 08/21/16 20:59 07/22/16 20:33 40 MG Vitamin B Complex/ Vit C/Folic Acid (Nephrocaps) 1 cap Q2D@0900 PO 07/22/16 09:00 08/21/16 08:59 Cholecalciferol (Vitamin D Tab) 1,000 inter.unit DAILY PO 07/22/16 09:00 08/21/16 08:59 07/23/16 07:26 1,000 INTER.UNIT Clopidogrel Bisulfate (plAVix TAB) 75 mg QAM PO 07/22/16 09:00 08/21/16 08:59 07/23/16 07:25 75 MG Digoxin (Lanoxin Tab) 0.125 mg MoWeFr@1600 PO 07/23/16 16:00 08/22/16 15:59 Gabapentin (Neurontin Cap) 100 mg BID PO 07/22/16 09:00 08/21/16 08:59 07/23/16 07:25 100 MG Metoclopramide HCl (Reglan Tab) 5 mg QID PO 07/22/16 09:00 08/21/16 08:59 07/23/16 07:25 5 MG Pantoprazole Sodium (Protonix Tab) 40 mg QAM PO 07/22/16 09:00 08/21/16 08:59 07/23/16 07:25 40 MG Potassium/ Phosphorus/Sodium (Phospha 250 Neutral 155-852-130 Mg) 1 tab BID PO 07/22/16 09:00 08/21/16 08:59 07/23/16 07:25 1 TAB Pramipexole Dihydrochloride (miraPEX TAB) 0.25 mg QPM PO 07/22/16 21:00 08/21/16 20:59 07/22/16 20:34 0.25 MG Sertraline HCl (Zoloft Tab) 50 mg QPM PO 07/22/16 21:00 08/21/16 20:59 07/22/16 20:33 50 MG Cyanocobalamin (Vitamin B-12 Tab) 1,000 mcg QAM PO 07/22/16 09:00 08/21/16 08:59 07/23/16 07:25 1,000 MCG Cinacalcet (Sensipar) 30 mg Q2D@0900 PO 07/22/16 09:00 08/21/16 08:59 Metoprolol Tartrate (Lopressor Tab) 25 mg BID PO 07/22/16 21:00 08/21/16 20:59 07/23/16 07:25 25 MG Metoprolol Tartrate (Lopressor Iv) 5 mg Q6H PRN IV 07/22/16 15:00 08/21/16 14:59 07/22/16 16:45 5 MG Apixaban (Eliquis Tab) 5 mg BID PO 07/22/16 21:00 08/21/16 20:59 07/23/16 07:25 5 MG Objective Vital Signs Date Time Temp Pulse Resp B/P Pulse Ox O2 Delivery O2 Flow Rate FiO2 07/23/16 10:20 98 Room Air 07/23/16 07:52 36.4 84 20 123/73 98 Room Air 07/23/16 03:34 36.5 82 18 135/76 98 Room Air 07/22/16 23:40 36.8 80 18 136/77 94 Room Air 07/22/16 20:08 36.7 94 18 126/75 94 Room Air 07/22/16 16:45 126 120/81 07/22/16 16:00 Room Air 07/22/16 15:37 36.8 126 16 120/81 94 Room Air 07/22/16 14:52 123 07/22/16 12:00 Room Air 07/22/16 11:40 36.8 115 20 115/74 97 Room Air Physical Exam General Appearance: WD/WN, no apparent distress Neck: supple, no adenopathy, no JVD, trachea midline Respiratory/Chest: chest non-tender, lungs clear, normal breath sounds, no respiratory distress, no accessory muscle use Cardiovascular: no edema, no gallop, no JVD, no murmur, + irregularly irregular Abdomen: normal bowel sounds, non tender, soft, no organomegaly Extremities: normal range of motion, non-tender, normal inspection, no pedal edema, no calf tenderness Neurologic/Psychiatric: benzol still operator II-XII nml as tested, normal mood/affect, oriented x 3, + abnormal gait, + aphasia, + motor weakness Skin: normal color, warm/dry, no rash Laboratory Results Last 24 Hours Test 07/22/16 11:33 07/23/16 07:03 07/23/16 09:16 Total Creatine Kinase 18 U/L Creatine Kinase MB 1.0 ng/ml Creatine Kinase MB Ratio 5.6 Troponin I 0.030 ng/ml White Blood Count 7.07 K/uL Red Blood Count 3.37 M/uL Hemoglobin 11.6 g/dL Hematocrit 36.1 % Mean Corpuscular Volume 107.1 fL Mean Corpuscular Hemoglobin 34.4 pg Mean Corpuscular Hemoglobin Concent 32.1 g/dl Platelet Count 248 K/uL Mean Platelet Volume 10.2 fL Neutrophils (%) (Auto) 56.9 % Lymphocytes (%) (Auto) 28.0 % Monocytes (%) (Auto) 7.5 % Eosinophils (%) (Auto) 6.5 % Basophils (%) (Auto) 0.8 % Neutrophils # (Auto) 4.02 K/uL Lymphocytes # (Auto) 1.98 K/uL Monocytes # (Auto) 0.53 K/uL Eosinophils # (Auto) 0.46 K/uL Basophils # (Auto) 0.06 K/uL RDW Standard Deviation 65.7 fL RDW Coefficient of Variation 16.7 % Immature Granulocyte % (Auto) 0.3 % Immature Granulocyte # (Auto) 0.02 K/uL Activated Partial Thromboplast Time 31.8 SECONDS Partial Thromboplastin Ratio 1.2 Sodium Level 138 mmol/L Potassium Level 4.5 mmol/L Chloride Level 99 mmol/L Carbon Dioxide Level 29 mmol/L Anion Gap 10.0 mmol/L Blood Urea Nitrogen 27 mg/dl Creatinine 4.00 mg/dl Est Creatinine Clear Calc Drug Dose 9.4 ml/min Estimated GFR () 12.3 Estimated GFR (Non- 10.6 BUN/Creatinine Ratio 6.7 Random Glucose 127 mg/dl Calcium Level 8.3 mg/dl Assessment and Plan 70 yo female with h/o ESRD on HD MWF, atrial fibrillation on Coumadin, presented with acute expressive aphasia. MRI showed an acute left parietal stroke, suspect due to cardioembolic source - Acute left parietal stroke: likely cardioembolic from atrial fibrillation with subtherapeutic INR lipids (LDL 39) and A1c (5.6) at goal, permissive hypertension normal MRA head, carotid US shows no stenosis, echo shows normal function, no intracardiac thrombus, no PFO will start Eliquis 5mg BID to replace Coumadin to provide more consistent anticoagulation OT/PT, speech evaluations, likely will need rehab - Atrial fibrillation with RVR: patient only takes Digoxin 3 days per week, Digoxin level was low with testing HR much better, consistently in 70-80's on monitor continue Lopressor 25mg PO BID, Digoxin [facility] will need to follow up closely with nursery rn at home - ESRD on HD on MWF: consult nephrology for HD orders, continue Sensipar, vitamins B and D, neutraphos Left humerus fracture that is nonhealing--continue to be taken when moving patient while in the hospital. Gout--continue allopurinol 100 mg by mouth twice a day. Hypercholesterolemia--continue atorvastatin 40 mg by mouth every afternoon. LDL at goal Restless leg syndrome--continue pramipexole 0.25 mg by mouth every afternoon. GERD--continue pantoprazole 40 mg by mouth every morning. Peripheral neuropathy--continue gabapentin 100 mg by mouth twice a day. GI dysmotility--continue metoclopramide 5 mg by mouth 4 times a day. Depression--continue sertraline 50 mg by mouth every afternoon. Plan: HD, therapy, should look into rehab given the new stroke, if HR well controlled the rest of the day would transfer to medical floor
--- NOTE | 2016-07-23 12:05 | Nephrology Consultation ---
Nephrology Consultation Date & Providers Date of Consultation: Jul 23, 2016. Primary Care Provider: Medardo Trotter M.D. Referring Provider: Reason for Consultation ESRD on HD History of Present Illness [place] Is a 70-year-old female with past medical history significant for end- stage renal disease on hemodialysis I am Thursday, Thursday, Thursday, hypertension , AFib on anticoagulation with Coumadin admitted to the hospital with left parietal stroke. nephrologic consult was requested for management of hemodialysis while inpatient. Electronic medical records including labs and imaging are reviewed in detail during patient's visit. [place] was admitted to the hospital yesterday with them aphasia and weakness and eventually MRI conform left parietal stroke. She was outside tPA window and currently being managed conservatively. Has history of AFib, her INR was subtherapeutic. carotid ultrasound was otherwise unremarkable. Currently her aphasia improved but the still has some residual symptoms and she is on pureed diet. Has end-stage renal disease, currently on dialysis Thursday, Thursday, Thursday Via left brachial cephalic AV fistula. Last dialysis was Thursday and she is due for dialysis today. currently volume status, blood pressure and electrolyte acceptable. Allergies Coded Allergies: Erythromycin (Verified Adverse Reaction, Severe, VOMITING, 07/21/16) Acetaminophen (Verified Adverse Reaction, Unknown, VOMITING, 07/21/16) Propoxyphene (Verified Adverse Reaction, Unknown, VOMITING, 07/21/16) Inpatient Medications Current Inpatient Medications Medications (Trade) Dose Ordered Sig/Liliane Route Start Time Stop Time Status Last Admin Dose Admin Aspirin (Ecotrin Tab) 81 mg QAM PO 07/22/16 09:00 08/21/16 08:59 07/23/16 07:25 81 MG Miscellaneous Information (Pharmacist Discharge Med Rec Consult) 1 ea UD PRN N/A 07/21/16 21:45 08/20/16 21:44 Allopurinol (Zyloprim Tab) 100 mg BID PO 07/22/16 09:00 08/21/16 08:59 07/23/16 07:26 100 MG Atorvastatin Calcium (Lipitor Tab) 40 mg QPM PO 07/22/16 21:00 08/21/16 20:59 07/22/16 20:33 40 MG Vitamin B Complex/ Vit C/Folic Acid (Nephrocaps) 1 cap Q2D@0900 PO 07/22/16 09:00 2/9/17 08:59 Cholecalciferol (Vitamin D Tab) 1,000 inter.unit DAILY PO 07/22/16 09:00 08/21/16 08:59 07/23/16 07:26 1,000 INTER.UNIT Clopidogrel Bisulfate (plAVix TAB) 75 mg QAM PO 07/22/16 09:00 08/21/16 08:59 07/23/16 07:25 75 MG Digoxin (Lanoxin Tab) 0.125 mg MoWeFr@1600 PO 07/23/16 16:00 08/22/16 15:59 Gabapentin (Neurontin Cap) 100 mg BID PO 07/22/16 09:00 08/21/16 08:59 07/23/16 07:25 100 MG Metoclopramide HCl (Reglan Tab) 5 mg QID PO 07/22/16 09:00 08/21/16 08:59 07/23/16 07:25 5 MG Pantoprazole Sodium (Protonix Tab) 40 mg QAM PO 07/22/16 09:00 08/21/16 08:59 07/23/16 07:25 40 MG Potassium/ Phosphorus/Sodium (Phospha 250 Neutral 155-852-130 Mg) 1 tab BID PO 07/22/16 09:00 08/21/16 08:59 07/23/16 07:25 1 TAB Pramipexole Dihydrochloride (miraPEX TAB) 0.25 mg QPM PO 07/22/16 21:00 08/21/16 20:59 07/22/16 20:34 0.25 MG Sertraline HCl (Zoloft Tab) 50 mg QPM PO 07/22/16 21:00 08/21/16 20:59 07/22/16 20:33 50 MG Cyanocobalamin (Vitamin B-12 Tab) 1,000 mcg QAM PO 07/22/16 09:00 08/21/16 08:59 07/23/16 07:25 1,000 MCG Cinacalcet (Sensipar) 30 mg Q2D@0900 PO 07/22/16 09:00 08/21/16 08:59 Metoprolol Tartrate (Lopressor Tab) 25 mg BID PO 07/22/16 21:00 08/21/16 20:59 07/23/16 07:25 25 MG Metoprolol Tartrate (Lopressor Iv) 5 mg Q6H PRN IV 07/22/16 15:00 08/21/16 14:59 07/22/16 16:45 5 MG Apixaban (Eliquis Tab) 5 mg BID PO 07/22/16 21:00 08/21/16 20:59 07/23/16 07:25 5 MG Family History Patient reports no known family medical history. Social History Smoking Status: Never Smoker Smokeless Tobacco Use: No Alcohol Use: none Drug Use: none Marital Status: Housing Status: lives with family Occupation: disabled Review of Systems A complete review of systems was performed. Pertinent positives are noted above. All other systems are negative. Physical Exam Date Time Temp Pulse Resp B/P Pulse Ox O2 Delivery O2 Flow Rate FiO2 07/23/16 07:52 36.4 84 20 123/73 98 Room Air 07/23/16 03:34 36.5 82 18 135/76 98 Room Air 07/22/16 23:40 36.8 80 18 136/77 94 Room Air 07/22/16 20:08 36.7 94 18 126/75 94 Room Air 07/22/16 16:45 126 120/81 07/22/16 16:00 Room Air 07/22/16 15:37 36.8 126 16 120/81 94 Room Air 07/22/16 14:52 123 07/22/16 12:00 Room Air 07/22/16 11:40 36.8 115 20 115/74 97 Room Air GENERAL: Elderly female, AAA x 3, currently not in any distress. HEENT: Atraumatic, normocephalic. NECK: Supple, no JVD, no carotid bruit appreciated. ENT: No sinus tenderness MOUTH and THROAT: Moist oral mucosa, no oral ulcer or pharyngeal erythema RESPIRATORY: Normal breathing efforts, no accessory muscle use, clear to auscultation bilaterally, no wheezes or rales. CARDIOVASCULAR: S1, S2 normal, rhythm irregular. ABDOMEN: Soft, nontender, positive bowel sound. MUSCULOSKELETAL: No CVA tenderness. No joint swelling, erythema or tenderness. Normal range of motion. SKIN: No skin rash EXTREMITY: No lower extremity edema NEURO: Speech normal. PSYCHIATRY: Normal mood and judgment Laboratory Results Last 24 Hours Test 07/22/16 11:33 07/23/16 07:03 Total Creatine Kinase 18 U/L Creatine Kinase MB 1.0 ng/ml Creatine Kinase MB Ratio 5.6 Troponin I 0.030 ng/ml White Blood Count 7.07 K/uL Red Blood Count 3.37 M/uL Hemoglobin 11.6 g/dL Hematocrit 36.1 % Mean Corpuscular Volume 107.1 fL Mean Corpuscular Hemoglobin 34.4 pg Mean Corpuscular Hemoglobin Concent 32.1 g/dl Platelet Count 248 K/uL Mean Platelet Volume 10.2 fL Neutrophils (%) (Auto) 56.9 % Lymphocytes (%) (Auto) 28.0 % Monocytes (%) (Auto) 7.5 % Eosinophils (%) (Auto) 6.5 % Basophils (%) (Auto) 0.8 % Neutrophils # (Auto) 4.02 K/uL Lymphocytes # (Auto) 1.98 K/uL Monocytes # (Auto) 0.53 K/uL Eosinophils # (Auto) 0.46 K/uL Basophils # (Auto) 0.06 K/uL RDW Standard Deviation 65.7 fL RDW Coefficient of Variation 16.7 % Immature Granulocyte % (Auto) 0.3 % Immature Granulocyte # (Auto) 0.02 K/uL Activated Partial Thromboplast Time 31.8 SECONDS Partial Thromboplastin Ratio 1.2 Sodium Level 138 mmol/L Potassium Level 4.5 mmol/L Chloride Level 99 mmol/L Carbon Dioxide Level 29 mmol/L Anion Gap 10.0 mmol/L Est Creatinine Clear Calc Drug Dose 9.4 ml/min Estimated GFR () 12.3 Estimated GFR (Non- 10.6 BUN/Creatinine Ratio 6.7 Random Glucose 127 mg/dl Calcium Level 8.3 mg/dl Impression (1) End-stage renal disease on hemodialysis (2) CVA (cerebral vascular accident) (3) Atrial fibrillation (4) Hypertension (5) Anemia (6) Secondary hyperparathyroidism of renal origin Virginia is a 70-year-old female with end-stage renal disease, hypertension, atrial fibrillation admitted to the hospital with left parietal stroke. She had aphasia which currently seems to be improving but still has some residual weakness. Blood pressure has been controlled. She had last dialysis Thursday, currently volume status, electrolyte acceptable and due for dialysis today. Has history of after defibrillation, on anticoagulation but INR was subtherapeutic. Recommendations --Schedule for dialysis this afternoon has a regular schedule, ultra filtration as tolerated to reach her estimated dry weight --Eliquis should be avoided in pt with ESRD of crcl <15, as there is not a lot of data with regarding safely in HD patients. --avoid IV fluid, continue on renal diet --continue sensipar, start on tums with meals --hemoglobin seems stable, no need for MATT currently Thank you for allowing me to participate in your patient's care. It was a pleasure to see [place] This chart was completed utilizing [employer] Speech and voice recognition software. Grammatical errors, random word insertions, pronoun errors and incomplete sentences are occasional consequences of this system. Any questions or concerns about the content, text or information contained within the body of this dictation should be addressed directly to the physician for clarification.
[2016-07-23] MEDS ORDERED: CALCIUM CARBONATE 500 MG CHEWABLE PO PRN (12:15)
[2016-07-23] MEDS ORDERED: DIGOXIN 0.125 MG TAB PO SCH (16:00)
[2016-07-23] MEDS: PRAMIPEXOLE DIHYDROCHLORIDE 0.25MG TAB PO SCH (20:20)
[2016-07-23] MEDS: ATORVASTATIN 40 MG TAB PO SCH (20:21)
[2016-07-23] MEDS: SERTRALINE HCL 50 MG TAB PO SCH (20:22)
[2016-07-23 20:53] LABS: HEPATITIS B AB NEG
[2016-07-24 03:10] VITALS: BP 120/71; PULSE 80; TEMP 36.6; O2SAT 98
[2016-07-24 07:23] VITALS: BP 116/71; PULSE 84; TEMP 36.3; O2SAT 95
[2016-07-24] MEDS: ALLOPURINOL 100 MG TAB PO SCH (07:41)
[2016-07-24] MEDS: ASPIRIN 81 MG ECTAB PO SCH (07:41)
[2016-07-24] MEDS: CLOPIDOGREL BISULFATE 75 MG TAB PO SCH (07:42)
[2016-07-24] MEDS: NEPHROCAPS PO SCH (07:42)
[2016-07-24] MEDS: GABAPENTIN 100 MG CAP PO SCH (07:42)
[2016-07-24] MEDS: CYANOCOBALAMIN 500 MCG TAB (VIT B-12) PO SCH (07:42)
[2016-07-24] MEDS: METOPROLOL TARTRATE 25 MG TAB PO SCH (07:42)
[2016-07-24] MEDS: METOCLOPRAMIDE HCL 5 MG TAB PO SCH (07:42)
[2016-07-24] MEDS: CINACALCET 30 MG TAB PO SCH (07:43)
[2016-07-24] MEDS: PANTOprazole SOD 40 MG TAB PO SCH (07:43)
[2016-07-24] MEDS: CHOLECALCIFEROL 1000 INTER.UNIT TAB PO SCH (07:43)
[2016-07-24] MEDS: APIXABAN 2.5 MG TAB PO SCH (07:43)
[2016-07-24] MEDS: POT PHOSPHATE MONOBASIC W/ SOD TAB PO SCH (07:43)
[2016-07-24 08:00] LABS: PARTIAL THROMBOPLASTIN RATIO 1.2
[2016-07-24 08:08] LABS: BASO % 0.7 %; BASO ABS # 0.05 K/uL (0-0.2); COMPLETE YES; EOS % 3.8 %; HEMATOCRIT 35.7 % (37-47); IG% 0.3 %; LYMPH % 25.1 %; LYMPH ABS # 1.85 K/uL (1.2-3.4); MEAN CELL VOLUME 106.3 fL (80-100); MEAN CORPUSCULAR HEMOGLOBIN 34.8 pg (25-34); MEAN CORPUSCULAR HGB CONC 32.8 g/dl (32-36); MEAN PLATELET VOLUME 10.4 fL (7.4-10.4); MONO % 6.8 %; NEUT % 63.3 %; PLATELET COUNT 258 K/uL (130-400); RED BLOOD COUNT 3.36 M/uL (4.2-5.4); WHITE BLOOD COUNT 7.37 K/uL (4.8-10.8)
[2016-07-24 08:28] LABS: BUN/CREATININE RATIO 6.3 (10-20); CALCIUM 7.8 mg/dl (8.5-10.1); CREATININE 2.2 mg/dl (0.60-1.20); POTASSIUM 3.6 mmol/L (3.5-5.1)
--- NOTE | 2016-07-24 10:24 | Nephrology Progress Note ---
Nephrology Progress Note Date of Service Jul 24, 2016. Chief Complaint ESRD on HD Subjective Virginia was seen and examined in her room this am. She denies any symptoms but she still has speech difficulty and expressive aphasia. BP, volume status stable. Electrolyte acceptable. Review of Systems A complete review of systems was performed. Pertinent positives are noted above. All other systems are negative. Vital Signs Last 8 Hrs Date Time Temp Pulse Resp B/P Pulse Ox O2 Delivery O2 Flow Rate FiO2 07/24/16 07:23 36.3 84 18 116/71 95 Room Air 07/24/16 04:00 Room Air 07/24/16 03:10 36.6 80 18 120/71 98 Room Air I & O 24-Hour Column 07/24/16 08:00 Intake Total 150 ml Balance 150 ml Last Recorded Weight Weight (Kilograms): 58.300 Physical Exam GENERAL: elderly female, awake, alert. NECK: Supple, no JVD. RESPIRATORY: Normal breathing efforts, no accessory muscle use, clear to auscultation bilaterally, no wheezes or rales. CARDIOVASCULAR: S1, S2 normal, rate rhythm regular. EXTREMITY: No lower extremity edema NEURO: still having speech difficulty and rt sided weakness. Family History Patient reports no known family medical history. Social History Smokeless Tobacco Use: No Alcohol Use: none Drug Use: none Marital Status: Housing Status: lives with family Occupation: disabled Laboratory Results Past 24 Hours 07/24/16 05:12 Red Blood Count 3.36, Mean Corpuscular Volume 106.3, Mean Corpuscular Hemoglobin 34.8, Mean Corpuscular Hemoglobin Concent 32.8, Mean Platelet Volume 10.4, Neutrophils (%) (Auto) 63.3, Lymphocytes (%) (Auto) 25.1, Monocytes (%) ( Auto) 6.8, Eosinophils (%) (Auto) 3.8, Basophils (%) (Auto) 0.7, Neutrophils # ( Auto) 4.67, Lymphocytes # (Auto) 1.85, Monocytes # (Auto) 0.50, Eosinophils # ( Auto) 0.28, Basophils # (Auto) 0.05 07/24/16 05:12 Test 07/23/16 17:23 07/23/16 19:44 07/24/16 05:12 Bedside Glucose 125 mg/dl (70-90) Hepatitis B Surface Antigen NEG (NEG) Hepatitis B Surface Antibody NEG White Blood Count 7.37 K/uL (4.8-10.8) Red Blood Count 3.36 M/uL (4.2-5.4) Hemoglobin 11.7 g/dL (12.0-16.0) Hematocrit 35.7 % (37-47) Mean Corpuscular Volume 106.3 fL (80-100) Mean Corpuscular Hemoglobin 34.8 pg (25-34) Mean Corpuscular Hemoglobin Concent 32.8 g/dl (32-36) Platelet Count 258 K/uL (130-400) Mean Platelet Volume 10.4 fL (7.4-10.4) Neutrophils (%) (Auto) 63.3 % Lymphocytes (%) (Auto) 25.1 % Monocytes (%) (Auto) 6.8 % Eosinophils (%) (Auto) 3.8 % Basophils (%) (Auto) 0.7 % Neutrophils # (Auto) 4.67 K/uL (1.4-6.5) Lymphocytes # (Auto) 1.85 K/uL (1.2-3.4) Monocytes # (Auto) 0.50 K/uL (0.11-0.59) Eosinophils # (Auto) 0.28 K/uL (0-0.5) Basophils # (Auto) 0.05 K/uL (0-0.2) RDW Standard Deviation 63.7 fL (36.4-46.3) RDW Coefficient of Variation 16.4 % (11.5-14.5) Immature Granulocyte % (Auto) 0.3 % Immature Granulocyte # (Auto) 0.02 K/uL (0.00-0.02) Activated Partial Thromboplast Time 31.8 SECONDS (21.0-31.0) Partial Thromboplastin Ratio 1.2 Anion Gap 13.0 mmol/L (3-11) Est Creatinine Clear Calc Drug Dose 16.7 ml/min Estimated GFR () 25.3 Estimated GFR (Non- 21.8 BUN/Creatinine Ratio 6.3 (10-20) Calcium Level 7.8 mg/dl (8.5-10.1) Allergies Coded Allergies: Erythromycin (Verified Adverse Reaction, Severe, VOMITING, 07/21/16) Acetaminophen (Verified Adverse Reaction, Unknown, VOMITING, 07/21/16) Propoxyphene (Verified Adverse Reaction, Unknown, VOMITING, 07/21/16) Medications Current Inpatient Medications Medications (Trade) Dose Ordered Sig/Liliane Route Start Time Stop Time Status Last Admin Dose Admin Aspirin (Ecotrin Tab) 81 mg QAM PO 07/22/16 09:00 08/21/16 08:59 07/24/16 07:41 81 MG Miscellaneous Information (Pharmacist Discharge Med Rec Consult) 1 ea UD PRN N/A 07/21/16 21:45 08/20/16 21:44 Allopurinol (Zyloprim Tab) 100 mg BID PO 07/22/16 09:00 08/21/16 08:59 07/24/16 07:41 100 MG Atorvastatin Calcium (Lipitor Tab) 40 mg QPM PO 07/22/16 21:00 08/21/16 20:59 07/23/16 20:21 40 MG Vitamin B Complex/ Vit C/Folic Acid (Nephrocaps) 1 cap Q2D@0900 PO 07/22/16 09:00 08/21/16 08:59 07/24/16 07:42 1 CAP Cholecalciferol (Vitamin D Tab) 1,000 inter.unit DAILY PO 07/22/16 09:00 08/21/16 08:59 07/24/16 07:43 1,000 INTER.UNIT Clopidogrel Bisulfate (plAVix TAB) 75 mg QAM PO 07/22/16 09:00 08/21/16 08:59 07/24/16 07:42 75 MG Digoxin (Lanoxin Tab) 0.125 mg MoWeFr@1600 PO 07/23/16 16:00 08/22/16 15:59 07/23/16 17:13 0.125 MG Gabapentin (Neurontin Cap) 100 mg BID PO 07/22/16 09:00 08/21/16 08:59 07/24/16 07:42 100 MG Metoclopramide HCl (Reglan Tab) 5 mg QID PO 07/22/16 09:00 08/21/16 08:59 07/24/16 07:42 5 MG Pantoprazole Sodium (Protonix Tab) 40 mg QAM PO 07/22/16 09:00 08/21/16 08:59 07/24/16 07:43 40 MG Potassium/ Phosphorus/Sodium (Phospha 250 Neutral 155-852-130 Mg) 1 tab BID PO 07/22/16 09:00 08/21/16 08:59 07/24/16 07:43 1 TAB Pramipexole Dihydrochloride (miraPEX TAB) 0.25 mg QPM PO 07/22/16 21:00 08/21/16 20:59 07/23/16 20:20 0.25 MG Sertraline HCl (Zoloft Tab) 50 mg QPM PO 07/22/16 21:00 08/21/16 20:59 07/23/16 20:22 50 MG Cyanocobalamin (Vitamin B-12 Tab) 1,000 mcg QAM PO 07/22/16 09:00 08/21/16 08:59 07/24/16 07:42 1,000 MCG Cinacalcet (Sensipar) 30 mg Q2D@0900 PO 07/22/16 09:00 08/21/16 08:59 07/24/16 07:43 30 MG Metoprolol Tartrate (Lopressor Tab) 25 mg BID PO 07/22/16 21:00 08/21/16 20:59 07/24/16 07:42 25 MG Metoprolol Tartrate (Lopressor Iv) 5 mg Q6H PRN IV 07/22/16 15:00 08/21/16 14:59 07/22/16 16:45 5 MG Apixaban (Eliquis Tab) 5 mg BID PO 07/22/16 21:00 08/21/16 20:59 07/24/16 07:43 5 MG Calcium Carbonate (Tums Chew Tab) 500 mg AC PRN PO 07/23/16 12:15 08/22/16 12:14 07/24/16 07:42 500 MG Impression (1) End-stage renal disease on hemodialysis (2) CVA (cerebral vascular accident) (3) Atrial fibrillation (4) Hypertension (5) Anemia (6) Secondary hyperparathyroidism of renal origin [place] is a 70-year-old female with end-stage renal disease, hypertension, atrial fibrillation admitted to the hospital with left parietal stroke. She had aphasia which currently seems to be improving but still has some residual weakness. Blood pressure has been controlled. She had last dialysis Thursday, currently volume status, electrolyte acceptable and due for dialysis today. Has history of after defibrillation, on anticoagulation but INR was subtherapeutic. Recommendations --Schedule for dialysis tomorrow as her regular schedule, ultra filtration as tolerated to reach her estimated dry weight --Eliquis should be avoided in pt with ESRD of crcl <15, as there is not enough data with regarding safely in HD patients. --avoid IV fluid, continue on renal diet --continue sensipar, and tums with meals --hemoglobin seems stable, no need for MATT currently --will follow
[2016-07-24] MEDS ORDERED: LPR25 PO (10:34)
[2016-07-24] MEDS ORDERED: CMD3 PO (10:34)
[2016-07-24] MEDS ORDERED: INSDGIPEN SC (10:34)
[2016-07-24] MEDS ORDERED: WARFARIN SOD 6 MG TAB PO ONE (10:45)
--- NOTE | 2016-07-24 10:51 | Discharge Instructions ---
Discharge Instructions Admission Reason for Admission: Atrial Fibrillation With Rvr, Expressive Aphasia Discharge Discharge Diagnosis / Problem: Acute ischemic stroke causing expressive aphasia , atrial fibrillation Discharge Goals Goal(s): Improve function, Improve disease control, Diagnostic testing (follow INR, should be between 2-3) Activity Recommendations Activity Limitations: resume your previous activity Exercise/Sports Limitations: as tolerated Shower/Bathe: no limitations Driving or Machine Use: no driving . Instructions / Follow-Up Instructions / Follow-Up Medications: - METOPROLOL: 25mg twice a day, this was started for better heart rate control with your atrial fibrillation - DIGOXIN: you should be taking this three times a week, not just once, your digoxin level was low when we tested it only taking once a week - COUMADIN: you will now be taking 3mg daily, you received 6mg today prior to discharge so you should start taking 3mg daily tomorrow evening - LANTUS: recommend decreasing the dose to 10 units in the morning, if your blood sugar is < 120 in the morning you should hold the Lantus, follow sugars closely FOLLOW UP - Dr. Trotter, call his office to schedule an appointment within one week for hospital follow up - Hemodialysis as schedule tomorrow - call your outside sales account representative to schedule a follow up appointment within the next 2- 3 weeks very important that you schedule an appointment because you need to discuss atrial fibrillation, anticoagulation You need to have INR followed closely by your primary care physician, will provide you with standing order for INR Current Hospital Diet Patient's current hospital diet: Renal Diet Discharge Diet Recommended Diet: AHA Diet (Heart Healthy), Diabetes Type 2 Diet Procedures Procedures Performed: MRI brain - left parietal stroke Echocardiogram - EF 55-60%, atrial enlargement, mild MR, diastolic dysfunction Pending Studies Studies pending at discharge: no Laboratory Results Hemoglobin A1c Test 07/21/16 19:38 Range/Units Estimated Average Glucose 114 mg/dl Hemoglobin A1c 5.6 4.5-5.6 % Lipid Panel Test 07/22/16 02:51 Range/Units Triglycerides Level 175 H 0-150 mg/dl Cholesterol Level 140 0-200 mg/dl HDL Cholesterol 66 mg/dl Cholesterol/HDL Ratio 2.1 LDL Cholesterol, Calculated 39 mg/dl Medical Emergencies . Who to Call and When: Medical Emergencies: If at any time you feel your situation is an emergency, please call 911 immediately. . Non-Emergent Contact Non-Emergency issues call your: Primary Care Provider Call Non-Emergent contact if: you have a fever, you have any medication questions . . "Provider Documentation" section prepared by Charly Hunt. VTE Core Measure Inpt VTE Proph given/why not?: Warfarin (Coumadin) [place] Drug Monitoring Program Search Results: no issues identified
[2016-07-24 11:00] VITALS: BP 112/67; PULSE 72; TEMP 36.5; O2SAT 94
--- NOTE | 2016-07-24 11:36 | Pharmacy Progress Note ---
Pharmacist Stroke Counseling Date of Service Jul 24, 2016. Scope Pharmacy has been consulted to provide medication discharge counseling for this patient admitted with ischemic stroke as per the Pharmacist Discharge Counseling for Stroke Patients Protocol. Medications on Discharge New Medications: Insulin Glargine (Lantus Solostar) 100 Unit/Ml Inj 10 UNITS SC QAM for 30 Days, #10 PEN Warfarin Sod (Coumadin) 3 Mg Tab 3 MG PO PM for 30 Days, #30 TABS 3 Refills Metoprolol Tartrate (Lopressor) 25 Mg Tab 25 MG PO BID for 30 Days, #60 TAB 3 Refills Continued Medications: Acetaminophen (Tylenol) 500 Mg Tab 1000 MG PO DIRECTED, TAB Allopurinol (Allopurinol) 100 Mg Tab 100 MG PO BID Atorvastatin (Lipitor) 40 Mg Tab 40 MG PO QPM, TAB B-Complex W/ C & Folic Acid (Triphrocaps) 1 Cap Cap 1 CAP PO Q2D Cholecalciferol (Vitamin D3) 1,000 Unit Tab 1000 MG PO DAILY for 90 Days, TAB 3 Refills Cinacalcet (Sensipar) 30 Mg Tab 30 MG PO Q2D, TAB Clopidogrel (Plavix) 75 Mg Tab 75 MG PO QAM, TAB Coenzyme Q10 (Ubidecarenone) (Co Q10) 100 Mg Cap 100 MG PO BID, CAP Cyanocobalamin (Vitamin B12) 1,000 Mcg Tab 1000 MCG PO DAILY Digoxin (Digoxin) 0.125 Mg Tab 0.125 MG PO DIRECTED TAKE 0.125MG ON THURSDAY, THURSDAY, AND THURSDAY MORNINGS. Gabapentin (Gabapentin) 100 Mg Cap 100 MG PO BID Loperamide Hcl (Imodium A-D) 2 Mg Tab 2 TAB PO DIRECTED Metoclopramide HCl (Metoclopramide HCl) 5 Mg Tab 5 MG PO QID Pantoprazole (Protonix) 40 Mg Tab 40 MG PO QAM, #30 TAB Pot Phosphate Monobasic W/ Sod (Phospha 250 Neutral) 1 Tab Tab 1 TAB PO BID Pramipexole Dihydrochloride (Pramipexole Dihydrochlori) 0.25 Mg Tab 0.25 MG PO QPM Sertraline (Zoloft) 50 Mg Tab 50 MG PO QPM, TAB Vitamin E (Vitamin E) 400 Unit Tab 400 MG PO DAILY Discontinued Medications: Digoxin (Digoxin) 0.125 Mg Tab 0.125 MG PO WK TAKE ON THURSDAY Warfarin Sod (Jantoven) 2 Mg Tab 2 MG PO QPM, TAB Action The above medications, specifically ones for stroke treatment/prophylaxis, have been reviewed in detail with the patient special service representative (Daughter named October) prior to discharge. This includes indication, common adverse reactions, drug interactions, and medication administration. Medication counseling has been employed using the teach-back method to ensure understanding. Outcome The patient and/or patient special service representative(s) have demonstrated understanding of the medications. Please note, they are aware that the pharmacist will call them within 72 hours post-discharge to confirm that the appropriate medications are being taken and answer any further medication related questions the patient might have at that time. Contact information Individual to be contacted: daughter Deepali or grand-daughter (both are departmental buyer caregivers to her) Relationship to patient (if applicable): daughter Phone number: [phone] or cell phone of [phone] Best time to call: Thursday has dialysis so is gone from at least 11 am to 3 pm Additional comments: Reviewed medications with patient's daughter. Patient has been on Lipitor, Plavix, and Coumadin as an outpatient previously. Extensively reviewed INR, side effects, and dietary restrictions for warfarin (patient only on for one month). Emphasized need to follow up with cardiology to determine if patient needs Plavix + warfarin. Daughter seemed knowledgeable and very kind. Thank you for allowing pharmacy to be involved in the care of this patient. Please call [phone] or [phone] with any additional questions
--- NOTE | 2016-07-24 13:22 | Discharge Summary ---
Discharge Summary Admission Date: Jul 21, 2016 at 21:54 Discharge Date: Jul 24, 2016 Discharge Disposition: Home Principal Diagnosis: Acute left parietal ischemic stroke causing expressive aphasia Problems/Secondary Diagnoses: Atrial fibrillation with RVR subtherapeutic INR DM type II ESRD on HD Procedures: Hemodialysis on Sunday 07/23 Consultations: Neurology Nephrology Medication Reconciliation New Medications: Insulin Glargine (Lantus Solostar) 100 Unit/Ml Inj 10 UNITS SC QAM for 30 Days, #10 PEN Warfarin Sod (Coumadin) 3 Mg Tab 3 MG PO PM for 30 Days, #30 TABS 3 Refills Metoprolol Tartrate (Lopressor) 25 Mg Tab 25 MG PO BID for 30 Days, #60 TAB 3 Refills Continued Medications: Acetaminophen (Tylenol) 500 Mg Tab 1000 MG PO DIRECTED, TAB Allopurinol (Allopurinol) 100 Mg Tab 100 MG PO BID Atorvastatin (Lipitor) 40 Mg Tab 40 MG PO QPM, TAB B-Complex W/ C & Folic Acid (Triphrocaps) 1 Cap Cap 1 CAP PO Q2D Cholecalciferol (Vitamin D3) 1,000 Unit Tab 1000 MG PO DAILY for 90 Days, TAB 3 Refills Cinacalcet (Sensipar) 30 Mg Tab 30 MG PO Q2D, TAB Clopidogrel (Plavix) 75 Mg Tab 75 MG PO QAM, TAB Coenzyme Q10 (Ubidecarenone) (Co Q10) 100 Mg Cap 100 MG PO BID, CAP Cyanocobalamin (Vitamin B12) 1,000 Mcg Tab 1000 MCG PO DAILY Digoxin (Digoxin) 0.125 Mg Tab 0.125 MG PO DIRECTED TAKE 0.125MG ON THURSDAY, THURSDAY, AND THURSDAY MORNINGS. Gabapentin (Gabapentin) 100 Mg Cap 100 MG PO BID Loperamide Hcl (Imodium A-D) 2 Mg Tab 2 TAB PO DIRECTED Metoclopramide HCl (Metoclopramide HCl) 5 Mg Tab 5 MG PO QID Pantoprazole (Protonix) 40 Mg Tab 40 MG PO QAM, #30 TAB Pot Phosphate Monobasic W/ Sod (Phospha 250 Neutral) 1 Tab Tab 1 TAB PO BID Pramipexole Dihydrochloride (Pramipexole Dihydrochlori) 0.25 Mg Tab 0.25 MG PO QPM Sertraline (Zoloft) 50 Mg Tab 50 MG PO QPM, TAB Vitamin E (Vitamin E) 400 Unit Tab 400 MG PO DAILY Discontinued Medications: Digoxin (Digoxin) 0.125 Mg Tab 0.125 MG PO WK TAKE ON THURSDAY Warfarin Sod (Jantoven) 2 Mg Tab 2 MG PO QPM, TAB Discharge Exam Patient feeling well today, no issues over night. Evaluated by therapy, she is a baseline function, sitting in wheelchair and requiring assistance for transfers. Her daughter takes care of her multimedia specialist. Discussed using Eliquis with ship pilot dispatcher, they recommend against this since there is no good evidence that it is safe. Also, the patient would be a fall risk. discussed with patient and family, they are on board with using Coumadin again. Patient happy about going home today. Review of Systems: Constitutional: + fatigue, + weakness, No chills, No fever, No problem reported, No sweats, No weight loss Eyes: No diplopia, No discharge, No eye pain, No problem reported, No redness, No worsening of vision ENT: No dental problems, No hearing loss, No nasal symptoms, No problem reported, No sore throat, No tinnitus, No trouble swallowing, No unusual epistaxis Respiratory: No cough, No dyspnea at rest, No dyspnea on exertion, No hemoptysis, No problem reported, No shortness of breath, No sputum, No wheezing Cardiovascular: No PND, No chest pain, No claudication, No edema, No orthopnea, No palpitations, No problem reported Abdomen: No GI bleeding, No constipation, No diarrhea, No nausea, No pain, No problem reported, No vomiting Musculoskeletal: No calf pain, No joint pain, No muscle pain, No problem reported, No swelling Genitourinary - Female: No dysuria, No hematuria, No urinary frequency, No urinary incontinence, No urinary retention, No urinary urgency Neurologic: + problem reported (expressive aphasia), + weakness (generalized ), No balance problems, No memory loss, No numbness/tingling, No paralysis, No vertigo Psychiatric: No anhedonism, No anxiety, No depression symptoms, No insomnia , No problem reported, No substance abuse Endocrine: No excessive thirst, No excessive urination, No fatigue, No problem reported Hematologic / Lymphatic: No abnormal bleeding/bruising, No clotting problems , No night sweats, No problem reported, No swollen lymph nodes Integumentary: No bleeding, No color change, No itch, No new/changing skin lesions, No problem reported, No rash Physical Exam: General Appearance: no apparent distress, + thin Eyes: normal inspection, EOMI, sclerae normal ENT: normal ENT inspection, hearing grossly normal, pharynx normal Neck: supple, no adenopathy, no JVD, trachea midline Respiratory/Chest: chest non-tender, lungs clear, normal breath sounds, no respiratory distress, no accessory muscle use Cardiovascular: no edema, no gallop, no JVD, no murmur, normal peripheral pulses, + irregularly irregular Abdomen / GI: normal bowel sounds, non tender, soft, no organomegaly Extremities: normal inspection, no calf tenderness, normal capillary refill , no pedal edema, non-tender, pelvis stable Neurologic/Psychiatric: tavern car attendant II-XII nml as tested, alert, normal mood/affect , normal reflexes, oriented x 3, + abnormal gait, + aphasia (expressive) Skin: normal color, warm/dry, no rash Hospital Course 70 yo female with h/o ESRD on HD MWF, atrial fibrillation on Coumadin, presented with acute expressive aphasia. MRI showed an acute left parietal stroke, suspect due to cardioembolic source - Acute left parietal stroke: likely cardioembolic from atrial fibrillation with subtherapeutic INR lipids (LDL 39) and A1c (5.6) at goal, permissive hypertension normal MRA head, carotid US shows no stenosis, echo shows normal function, no intracardiac thrombus, no PFO started Eliquis 5mg BID to replace Coumadin to provide more consistent anticoagulation, however, after discussion with nephrology, this probably would not be safe OT/PT, speech evaluations - recommend that she can return home with daughter who is multimedia specialist child care nurse for anticoagulation, will give 6mg Coumadin today and then will increase dose to 3mg from 2mg that she was previously taking follow INR closely - Atrial fibrillation with RVR: patient only takes Digoxin 3 days per week, Digoxin level was low with testing HR much better, consistently in 70-80's on monitor continue Lopressor 25mg PO BID, Digoxin MW, can check digoxin level as outpatient will need to follow up closely with flight engineer at home ([facility]) - ESRD on HD on MWF: consult nephrology for HD orders, continue Sensipar, vitamins B and D, neutraphos Left humerus fracture that is nonhealing--continue supportive care, this is old fracture Gout--continue allopurinol 100 mg by mouth twice a day. Hypercholesterolemia--continue atorvastatin 40 mg by mouth every afternoon. LDL at goal Restless leg syndrome--continue pramipexole 0.25 mg by mouth every afternoon. GERD--continue pantoprazole 40 mg by mouth every morning. Peripheral neuropathy--continue gabapentin 100 mg by mouth twice a day. GI dysmotility--continue metoclopramide 5 mg by mouth 4 times a day. Depression--continue sertraline 50 mg by mouth every afternoon. Plan: d/c to home with daughter as multimedia specialist child care nurse, she is at baseline function level, still with aphasia report for HD tomorrow increase Coumadin to 3mg from 2mg daily, follow INR with PCP add Lopressor 25mg BID which has provided adequate HR control for 36 hours discussed that the patient needs to make follow up with [facility] cardiology for atrial fibrillation management (daughter says it has been years) Total Time Spent: Greater than 30 minutes This includes examination of the patient, discharge planning, medication reconciliation, and communication with other providers. Discharge Instructions Please refer to the electronic Patient Visit Report (Discharge Instructions) for additional information. Follow-Up Dr. Trotter in one week Hemodialysis tomorrow [facility] cardiology in 2-3 weeks Neurology clinic in one month Additional Copies To Medardo Trotter M.D.; Amparo Streeter D.O.
--- NOTE | 2016-07-25 11:55 | Pharmacy Progress Note ---
Pharmacist Post D/C Phone Note Date of phone call: Jul 25, 2016. Individual with whom pharmacist spoke to: daughter October The following questions were reviewed during the phone call with responses listed below each: Can you tell me the medications that you are currently taking as well as when and how you take each medication? - yes, patient's daughter was extremely knowledgeable When have you missed any doses of your medications? - no What side effects are you having from your medications? - no What questions do you have about your medications? - patient's daughter had no questions What problems are you having obtaining your medications? - prescription for digoxin not sent in. Will contact provider to send prescription. When is your next appointment with your primary care doctor? - next week () Additional comments: - patient was at dialysis and they reviewed the medications that she received last night and this morning. Will give 3 mg of warfarin tonight As per the Pharmacist Discharge Counseling for Stroke Patients Protocol, this phone call has been completed within 72 hours of discharge. Thank you for allowing us to be involved in the care of this patient.
== END 2016-07-24 14:43 | disposition home or self-care (01) | DRG 64 ==
LOC: ENRESERVTM → ENRESERVDT → C.EDB 19:21 → C.2T 21:54 → EDBEDREQ 22:03
PROVIDERS: ADMIT Hospitalist; ATTEND Internal Medicine
DX: I63.9 Cerebral infarction, unspecified (principal); G93.40 Encephalopathy, unspecified; N18.6 End stage renal disease; N25.81 Secondary hyperparathyroidism of renal origin; I12.0 Hypertensive chronic kidney disease with stage 5 chronic kidney disease or end stage renal disease; Z99.2 Dependence on renal dialysis; Z79.01 Long term (current) use of anticoagulants; F32.9 Major depressive disorder, single episode, unspecified; I48.2 Chronic atrial fibrillation; Z88.3 Allergy status to other anti-infective agents; Z88.6 Allergy status to analgesic agent; Z88.5 Allergy status to narcotic agent; Z79.02 Long term (current) use of antithrombotics/antiplatelets; Z79.899 Other long term (current) drug therapy; M10.9 Gout, unspecified; E78.00 Pure hypercholesterolemia, unspecified; G25.81 Restless legs syndrome; I48.0 Paroxysmal atrial fibrillation; D64.9 Anemia, unspecified; K21.9 Gastro-esophageal reflux disease without esophagitis; E11.40 Type 2 diabetes mellitus with diabetic neuropathy, unspecified; E11.22 Type 2 diabetes mellitus with diabetic chronic kidney disease; E11.65 Type 2 diabetes mellitus with hyperglycemia; M51.36 Other intervertebral disc degeneration, lumbar region; S42.202G Unspecified fracture of upper end of left humerus, subsequent encounter for fracture with delayed healing; Y99.9 Unspecified external cause status; R47.01 Aphasia